=== PATIENT | female | born 1990 | race Caucasian/White ===

== ENCOUNTER 2020-12-05 14:30 | Emergency (ER) | payer OTHER, SELFPAY ==
--- NOTE | ~2020-12-05 | XR_ITS ---
EXAMINATION: XR foot RT min 3V DATE: 12/05/2020 15:00 INDICATION: Right foot pain TECHNIQUE: Dorsoplantar, lateral, and 2 oblique views of the right foot were obtained. COMPARISON: None. FINDINGS: There is lateral soft tissue swelling of the foot. Bone alignment is normal. There is no fr acture. The joint spaces are normal. IMPRESSION: 1. Soft tissue swelling without acute osseous abnormality. Reviewed, dictated and finalized at location B.
[2020-12-05 14:50] VITALS: BP 131/71; PULSE 96; RESP 20; TEMP 36.8; O2SAT 100
[2020-12-05 14:53] VITALS: BP 131/71; PULSE 96; RESP 20; TEMP 36.8; O2SAT 100
--- NOTE | 2020-12-05 15:08 | ED.LOWEXIN ---
HPI - Extremity Injury (Lower) General Chief Complaint: Extremity Injury, Lower Stated Complaint: r foot pain Time Seen by Provider: 12/05/20 15:08 Source: patient Mode of arrival: ambulatory Limitations: no limitations History of Present Illness HPI Narrative: Tequila Baig is a 30 yo female with a PMH of tobacco abuse who fell out of the basement steps last night and her right foot got caught under the rest of her leg. And across the top of her right foot goes to the lateral side; has been taking her 800 milligrams ibuprofen and states the pain still 7 or 8 out of 10 Related Data Allergies Allergy/AdvReac Type Severity Reaction Status Date / Time azithromycin Allergy Unknown Rash Verified 12/05/20 14:51 Review of Systems Review of Systems: Narrative: CONSTITUTIONAL: Denies fever, chills, sweats. EYES: Denies visual changes, redness, discharge. ENT: Denies rhinorrhea, congestion, sore throat, otalgia. CARDIOVASCULAR: Denies chest pain, palpitations, edema. RESPIRATORY: Denies dyspnea, wheezing, cough GASTROINTESTINAL: Denies abdominal pain, nausea, vomiting, diarrhea. GENITOURINARY: Denies dysuria, hematuria, abnormal discharge SKIN: Denies rash or itching. NEUROLOGIC: Denies numbness, or focal weakness. PSYCHIATRIC: Denies anxiety or depression. Right foot pain from fall PMFSH Past Medical History Medical History Obese Tobacco abuse Family History Family History (Updated 12/05/20 @ 15:17 by Zandra Penny CNP) Other Breast cancer COPD (chronic obstructive pulmonary disease) Diabetes mellitus Family history of arthritis Family history of malignant neoplasm Hypertension Social History Social History Smoking status: Light tobacco smoker Alcohol intake: current Comments At time of signature, I agree with nursing past medical, surgical, social and family history. There is no relevant family history pertinent to the presenting complaint. Exam Narrative: Exam Narrative: GENERAL: This is a well-nourished, well-developed patient, in mild distress. HEAD: normocephalic, atraumatic. EYES: Sclera clear/white. Vision is grossly intact. EARS: External ears normal, Hearing grossly intact. NOSE: External nose normal without nasal discharge, nares without redness, no rhinorrhea. THROAT: Mucous membranes moist, NECK: Neck supple, CARDIOVASCULAR: Regular rate and rhythm without murmurs, gallops, or rubs. RESPIRATORY: Clear to auscultation. Breath sounds equal bilaterally. No wheezes, rales, or rhonchi. GASTROINTESTINAL: Abdomen soft, SKIN: warm, intact with no suspicious lesions or rash, good texture and turgor. NEURO: awake, alert, and oriented to person, place and time. There were no obvious focal neurologic abnormalities. Steady gait EXTREMITIES: Normal range of motion on L. Patient is able to bear weight but is painful, pain is across the dorsum of her foot going to the lateral side of her foot, 2+ pedal pulse BACK: Nontender without deformity Course Course Emergency Course: Patient fell going down the basement steps and then her foot up underneath her leg when she fell. States that she has been taking her milligrams ibuprofen with no pain relief X-ray shows no fracture. Soft tissue swelling on the right foot Richi wrap applied to right foot; RICE next few days To continue ibuprofen 800 mg and [place] for pain relief Vital Signs Vital signs: Vital Signs Temperature 98.3 F 12/05/20 14:50 Pulse Rate 96 12/05/20 14:50 Respiratory Rate 20 12/05/20 14:50 Blood Pressure 131/71 12/05/20 14:50 Pulse Oximetry 100 12/05/20 14:50 Temperature 98.3 F 12/05/20 14:53 Pulse Rate 96 12/05/20 14:53 Respiratory Rate 20 12/05/20 14:53 Blood Pressure 131/71 12/05/20 14:53 Pulse Oximetry 100 12/05/20 14:53 MDM - Extremity Injury (Lower) Differential Diagnosis
== END 2020-12-05 15:35 | disposition home or self-care (01) ==
PROVIDERS: Emergency Provider Nurse Practitioner; PCP Nurse Practitioner Family
DX: M79.671 Pain in right foot (principal); E66.9 Obesity, unspecified; Z68.41 Body mass index [BMI] 40.0-44.9, adult
CPT/HCPCS: 73630; 99213; G0463

== ENCOUNTER 2021-11-10 15:51 | Observation (INO) | payer OTHER, SELFPAY ==
[2021-11-10] VITALS (42 sets, daily range): BP systolic 99–129; BP diastolic 48–76; PULSE 77–119; RESP 16–23; TEMP 36.5; O2SAT 96–100; BMI 43.2
--- NOTE | ~2021-11-10 | US_ITS ---
EXAMINATION: US OB follow up DATE: 11/10/2021 16:45 INDICATION: Vaginal bleeding during second trimester TECHNIQUE: Real-time ultrasound of the pelvis was performed. The interpreting radiologist was not pre sent for the study. COMPARISON: None. FINDINGS: There is a single fetus in vertex presentation. The head is within the cervix. The pl acenta is posterior. There is no detectable cardiac activity. The following biometric data were obtained: Biparietal diameter (BPD): 2.0 cm; head circumference (HC): 8.5 cm; abdominal circumference (AC): 10. 2 cm; femur length (FL): 1.9 cm. Estimated weight is 128 g +/- 19 g, which correlates with the <3rd percentile when 04/17/2022 is used as estimated date of delivery. As single measurements, these parameters are each equal to the following estimated gestational ages w ith ranges of +/- 2 standard deviations: BPD: 13 weeks 1 days +/- 1 weeks 1 days. HC: 13 weeks 5 days +/- 1 weeks 1 days. AC: 16 weeks 2 days +/- 1 weeks 5 days. FL: 15 weeks 3 days +/- 1 weeks 3 days. estimated gestational age based solely on measurements from this exam is 14 weeks 5 days +/- 1 weeks 0 days. IMPRESSION: 1. demise with head in the cervix. Reviewed, dictated and finalized at location A.
--- NOTE | 2021-11-10 16:00 | PC.NURSE ---
Patient presents to labor with c/o bleeding and cramping. States that the cramping started this morning with some pink discharge. Patient then started having more bleeding this afternoon and called MD. MD sent her for evaluation.
--- NOTE | 2021-11-10 16:04 | PC.NURSE ---
Dr Avilez informed of vaginal bleeding and unable to doppler fht's. OK to do sve and Bedside us.
--- NOTE | 2021-11-10 16:11 | PC.NURSE ---
Dr Avilez notified of bleeding and difficulty finding fht's with doppler. Orders received.
--- NOTE | 2021-11-10 16:15 | PC.NURSE ---
SVE possible small parts felt.
--- NOTE | 2021-11-10 16:21 | PC.NURSE ---
US at bedside.
--- NOTE | 2021-11-10 16:29 | PC.NURSE ---
Dr Avilez notifed that no heart tones noted on US and that fetus is coming thru cervix.
--- NOTE | 2021-11-10 16:46 | PM.IMHP ---
H&P: HPI History of Present Illness Date/Time: 11/10/21 16:46 Chief Complaint: vaginal bleeding Narrative: Tequila is a 31yo @ 17.3wks (RACHANA 04[birth year]) who presented to L&D w/ vaginal bleeding. She has been having cramping and bleeding all day; bright red bleeding. Official US confirmed demise at 14.5wks with the fetus in the cervix. She subsequently delivered the baby at ~1700. She began having significant bleeding; misoprostol and hemabate were given. She continued having bleeding ~600-800cc and plan to proceed with D&C as she has a retained placenta. she has a h/o x2; the last complicated by pre-eclampsia and she has been on aspirin. Review of Systems Review of Systems: All systems reviewed & are unremarkable except as noted in HPI and below (HPI) FORMERLY [facility] Past Medical History Medical History (Updated 11/10/21 @ 17:19 by Sonal Arellano MD) Obese PCOS (polycystic ovarian syndrome) Tobacco abuse Family History Family History Other Breast cancer COPD (chronic obstructive pulmonary disease) Diabetes mellitus Family history of arthritis Family history of malignant neoplasm Hypertension Social History Social History (Updated 09/08/21 @ 10:57 by Rosa Jiang MA) Smoking packs per day: 0.25 Smoking cigarettes per day: 5.0 Years smoked: 16 Smoking pack-years: 4.00 Smoking status: Light tobacco smoker Alcohol intake: never Substance use: current Substance use type: marijuana Gender identity (if verbalized by the patient): Female Meds Home Medications and Allergies Home Medications Medication Instructions Recorded Confirmed Type aspirin 81 mg tablet,delayed 162 mg PO DAILY #180 tabs 09/08/21 10/14/21 Rx release (Adult Aspirin Regimen) doxylamine succinate 25 mg tablet 25 mg PO QHS #60 tabs 09/08/21 10/14/21 Rx (Unisom (doxylamine)) magnesium oxide 400 mg PO DAILY #90 caps 09/08/21 10/14/21 Rx ondansetron 4 mg disintegrating 4 mg PO Q6H PRN nausea and 09/08/21 09/08/21 Rx tablet vomiting #30 tabs prenat.vits,sophia,kpa-yaxe-ljfip 1 tablet PO DAILY 09/08/21 10/14/21 History pyridoxine (vitamin B6) 25 mg 25 mg PO TID #120 tabs 09/08/21 10/14/21 Rx tablet riboflavin (vitamin B2) 400 mg 400 mg PO DAILY #90 tabs 10/14/21 10/14/21 Rx tablet Allergies Allergy/AdvReac Type Severity Reaction Status Date / Time azithromycin Allergy Unknown Rash Verified 09/08/21 10:54 Vital Signs Vital Signs - 24 hr 11/10/21 16:21 Pulse Rate 86 Blood Pressure 124/66 Exam Const: General: in distress (tearful and crying) moderate Resp: Effort & Inspection: normal respiratory effort GI: Inspection: non-distended GI Palp: No abdominal tenderness and Yes Soft to palpation : Other: macerated fetus at perineum with significant amount of clots; placenta in situ; cervix 2-3cm dilated; unable to tolerate exam EBl ~600-800cc at this point. Assessment and Plan Assessment and plan (1) Missed with demise before 20 completed weeks of gestation: Code(s): O02.1 - Missed Status: Acute (2) Retained placenta: Code(s): O73.0 - Retained placenta without hemorrhage Status: Acute (3) hemorrhage: Code(s): O72.1 - Other immediate hemorrhage Status: Acute Plan - warehouse consultant called @ [phone]; need to proceed with urgent suction D&C due to retained placenta and PPH - risks and benefits explained in detail - s/p hemabate; continue q15min - s/p misoprostol 1000mcg per rectum - T&S, IVF
--- NOTE | 2021-11-10 16:58 | PC.NURSE ---
Baby starting to deliver. Dr Arellano.
--- NOTE | 2021-11-10 16:59 | PC.NURSE ---
Spont vaginal delivery of a non viable male fetus, Dr Arellano at bedside.
[2021-11-10] MEDS: CARBOPROST TROMETHAMINE 250 MCG/ML AMPUL IM ×2 (17:03→17:26)
[2021-11-10] MEDS: LACTATED RINGERS 1,000 ML 999 ML IV CONT ×2 (17:03→17:45)
[2021-11-10] MEDS: miSOPROStol 200 MCG TABLET 1000 MCG RECTAL (17:08)
--- NOTE | 2021-11-10 17:20 | WPDHPUPDATE1 ---
History and Physical Update Update Date/Time: 11/10/21 17:20 History and Physical has been reviewed, including an updated exam of the patient. There are NO changes in the patient's condition. Risks, benefits, and alternatives have been discussed and questions answered. Patient agrees to proceed with procedure.
--- NOTE | 2021-11-10 17:27 | WPDANESEPP ---
Anes - Eval Pre Procedure Procedure: suction D&C Date/Time: 11/10/21 17:27 Surgeon: Adan Preop Diagnosis: Missed AB before 20 weeks Pre Op Diagnosis: Cramping/Bleeding Patient Data Age: 31 Gender: F Height: Weight: Last Vital Signs Pulse 96 11/10/21 17:22 BP 120/63 11/10/21 17:22 Pulse Ox 98 11/10/21 17:27 Allergies Allergy/AdvReac Type Severity Reaction Status Date / Time azithromycin Allergy Unknown Rash Verified 09/08/21 10:54 Home Medications Medication Instructions Recorded Confirmed Type aspirin 81 mg tablet,delayed 162 mg PO DAILY #180 tabs 09/08/21 10/14/21 Rx release (Adult Aspirin Regimen) doxylamine succinate 25 mg tablet 25 mg PO QHS #60 tabs 09/08/21 10/14/21 Rx (Unisom (doxylamine)) magnesium oxide 400 mg PO DAILY #90 caps 09/08/21 10/14/21 Rx ondansetron 4 mg disintegrating 4 mg PO Q6H PRN nausea and 09/08/21 09/08/21 Rx tablet vomiting #30 tabs prenat.vits,sophia,ifm-zixm-klsec 1 tablet PO DAILY 09/08/21 10/14/21 History pyridoxine (vitamin B6) 25 mg 25 mg PO TID #120 tabs 09/08/21 10/14/21 Rx tablet riboflavin (vitamin B2) 400 mg 400 mg PO DAILY #90 tabs 10/14/21 10/14/21 Rx tablet Patient hx anesthesia problems: none Family hx anesthesia problems: none Results Review: All pre-operative results and documents have been reviewed as part of the pre-operative evaluation. FORMERLY [facility] Past Medical History Medical History Obese PCOS (polycystic ovarian syndrome) Tobacco abuse Family History Family History Other Breast cancer COPD (chronic obstructive pulmonary disease) Diabetes mellitus Family history of arthritis Family history of malignant neoplasm Hypertension Social History Social History Smoking packs per day: 0.25 Smoking cigarettes per day: 5.0 Years smoked: 16 Smoking pack-years: 4.00 Smoking status: Light tobacco smoker Alcohol intake: never Substance use: current Substance use type: marijuana Gender identity (if verbalized by the patient): Female Exam Day of Procedure 11/10/21 17:27 Patient weight: obese Heart: regular rate and rhythm Lungs: normal air movement Airway: Mallampati scale class II Neurological: other (very upset, tearful)
[2021-11-10 17:39] LABS: Basophils Absolute Auto 0.1 K/mm3 (0.0-0.1); Basophils Percent Auto 0.6 % (0.2-1.2); Eosinophils Absolute Auto 0.4 K/mm3 (0-0.3); Eosinophils Percent Auto 3.6 % (0-4.4); Hematocrit 41.4 % (37.0-47.0); Hemoglobin 14.9 g/dL (12.0-15.0); Immature Granulocyte Absolute 0.08 K/mm3 (0.00-0.031); Immature Granulocyte Percent A 0.7 % (0-0.5); Lymphocytes Absolute Auto 2.96 K/mm3 (0.9-3.2); Lymphocytes Percent Auto 26.5 % (18.3-44.2); Mean Corpuscular Hemoglobin 31.2 pg (26-34); Mean Corpuscular Volume 86.8 fl (80-100); Mean Platelet Volume 11.5 fl (7.4-10.4); Monocytes Absolute Auto 0.7 K/mm3 (0.1-0.6); Monocytes Percent Auto 5.8 % (2.6-8.5); Neutrophils Percent Auto 62.8 % (45.5-73.1); Platelet Count Result 316 k/mm3 (150-375); Red Blood Count 4.77 M/mm3 (4.2-5.4); Red Cell Distribution Width 13.3 % (11.5-14.5); White Blood Count 11.2 K/mm3 (4.5-10.0)
--- NOTE | 2021-11-10 17:42 | LDADM ---
This patient, Tequila Baig, was admitted to OB Post 113 on 11/10/21 at 15:51. Plans for labor, pain management and were discussed with patient. Patient/family oriented to hospital policies and general routines including ID bracelet, bed and alarms, visiting hours, pain management, procedures, bathroom and other care routines, personal items, smoking policy, room service/diet and guest tray routines, infant security routines, and visiting hours. Patient/Family are encouraged to report perceived risks to care and to ask questions if they do not understand what they are told or what they should do. See OBIX for further documentation.
[2021-11-10 17:50] LABS: Partial Thromboplastin Time 26.8 SECONDS (22.3-36.8)
[2021-11-10 17:55] LABS: Fibrinogen 370 mg/dl (215-510)
[2021-11-10 17:58] LABS: Alanine Aminotransferase 15 U/L (6-35); Alkaline Phosphatase 52 U/L (38-126); Anion Gap 8 mmol/L (8-16); Aspartate Amino Transferase 20 U/L (14-36); Bilirubin,Total 0.9 mg/dL (0.2-1.3); Blood Urea Nitrogen 5 mg/dL (7-17); Calcium 8.7 mg/dL (8.4-10.2); Carbon Dioxide 24 mmol/L (22-30); Chloride 106 mmol/L (98-107); Estimated CRCL calculation 163 ml/min; Estimated Glomerular Filt Rate > 60; Glucose 93 mg/dL (65-110); Potassium 3.5 mmol/L (3.4-5.0); Sodium 138 mmol/L (137-145)
[2021-11-10] MEDS: ceFAZolin SODIUM 1 GM VIAL 2 GM IV PUSH (18:14)
--- NOTE | 2021-11-10 18:17 | P.PNAN_ITS ---
Anes - Eval Final PreProcedure Day of Procedure 11/10/21 18:17 Patient weight: morbidly obese Heart: regular rate and rhythm Lungs: clear to auscultation Airway: Mallampati scale class II Neurological: alert and oriented Last oral intake: >/= 8 hours ASA classification: III Emergent: yes Anesthetic plan: proceed Anesthesia type and monitoring: general GIVS and standard monitoring Results Review: All pre-operative results and documents have been reviewed as part of the pre- operative evaluation. Informed Consent: The patient's anesthetic plan and its attendant risks and benefits were discussed with the patient/family/POA. Questions were solicited and answers provided to the satisfaction of the patient/family/POA.
[2021-11-10] MEDS: LACTATED RINGERS 1,000 ML 30 ML IV CONT (18:41)
--- NOTE | 2021-11-10 18:42 | PC.NURSE ---
Addendum entered by Anusha Ramirez RN 11/10/21 18:44: 1658 - Original Note: Dr Arellano here to see patient, informed that patient is in the process of delivering.
--- NOTE | 2021-11-10 18:43 | P.PCNOB_ITS ---
OB - Delivery Note Procedure Delivery date: 11/10/21 Procedure: Procedures Operation Date: 11/10/21 18:30 Actual Procedure Side Surgeon p D&C Suction and Sharp Sonal Arellano MD Events: Other (IUFD) Route of delivery: Laceration Description: None Quantitative Blood Loss (ml): 1,200 Anesthesia type: None Disposition: Floor [place] Baby Date of : 11/10/21 Time of : 16:59 Weeks of gestation at delivery: 17 (.3) Weight (pounds): 0 Weight (ounces): 1 (.9) presentation: vertex Placenta delivery description: Curettage score one minute: 0 score five minutes: 0 Narrative: On arrival to room, macerated fetus was noted to be delivered in large pool of blood clots. The umbilical cord was doubly clamped and cut and fetus was handed off. With gentle traction on the cord; the placenta did not deliver. She as given hemabate 250mcg and misoprostol 1000mcg were placed @ 1703. She continued to have bleeding and a QBL of 919cc was noted at 1715. The household chores was then called at 1715 that an OR team needed to be called in for retained placenta with hemorrhage and that suction D&C needed to be performed urgently. She was given another dose of hemabate at 1726. She continued to have cramping pain and continued to have bleeding. Gentle traction on the cord was attempted 2-3x more and the placenta would not deliver and she continued to have bleeding; EBL prior to rolling to surgery was 1200cc. [facility] Delivery Billing Delivery Delivery: Delivery Charge
[2021-11-10 18:45] LABS: HIV 1/2 Ab P24 Ag Result Negative (Negative)
--- NOTE | 2021-11-10 18:51 | W.PM.PROC2 ---
Procedure Note - Detailed Date of Procedure 11/10/21 Pre-op Diagnosis Retained placenta hemorrhage Post-op Diagnosis Same Procedure Performed Suction dilation and curettage Surgeon Sonal Arellano MD Anesthesia General Indications Tequila is a 31yo now P2022 s/p delivery of IUFD fetus at 17w 3d. She had a retained placenta s/p hemabate x2 and misoprostol x1 with EBL of 1,200cc prior to suction D&C. Findings Cervix 3-4cm dilated with a small piece of the placenta delivering through the cervix. A large amount of placenta teased out using ring forceps. Suction and sharp curettage performed to verify the cavity was clean. Cervix 2cm dilated with good hemostasis. Bimanual massage performed with good uterine tone and minimal bleeding at end of case. Description of Procedure Patient arrived in operating room at 1806. She was transferred over to the operating table where she was placed under general endotracheal anesthesia without complications. She was prepped and draped in the usual sterile fashion in the dorsal lithotomy position with her legs in low Jakub stirrups. She received Ancef 2 g and a time-out was performed. A bivalve speculum was placed within the vagina where the above findings were noted. Using ring forceps a significant portion of the placenta was removed and sent to pathology. The anterior lip of the cervix was grasped with the ring forceps. The cervix remained dilated therefore a 12 Sets[place]ana suction curettage was placed into the uterine cavity and an additional piece of placenta was removed. She continued to have bleeding therefore a gentle sharp curettage was performed with a small amount of placenta removed. A bedside ultrasound was used and showed a small amount of placenta still remaining on the anterior uterine wall. A size 8 Setswana suction curettage was performed and a small amount of placenta and clots were removed. Ultrasound was once again performed and a thin endometrial lining was noted. The cervix was noted to be clamped down to 2 cm with minimal bleeding. All instruments were removed from the vagina and a bimanual massage was performed where good uterine tone with minimal bleeding was noted. Sponge, lap, instrument, and needle counts were correct at the end of the procedure patient was awoken from general anesthesia and taken to recovery in a stable condition with overnight stay planned for tonight. Estimated Blood Loss 200 Pathology Yes Complications No immediate complications Condition Stable Disposition Floor (OB) [facility] Billing Surgery - Charge Forward: Surgery Billing
--- NOTE | 2021-11-10 19:08 | PC.NURSE ---
Press Shop Supervisor notified
--- NOTE | 2021-11-10 19:12 | PC.NURSE ---
MTS notified ref #[id number]
[2021-11-10] MEDS: LOPERAMIDE HCL 2 MG CAPSULE 4 MG PO (19:55)
[2021-11-10] MEDS: THIAMINE HCL INJ 100 MG, FOLIC ACID INJ 1 MG, MULTIVITAMINS-12 INJ VIAL 1 5 ML, MULTIVI... IV CONT (20:01)
[2021-11-10] MEDS: fentaNYL CITRATE INJ (*CRX) 100 MCG/2 ML VIAL (20:03)
[2021-11-10] MEDS: IBUPROFEN 400 MG TABLET 800 MG PO (21:45)
[2021-11-10 21:52] LABS: Hematocrit 36.2 % (37.0-47.0); Hemoglobin 13.1 g/dL (12.0-15.0); Mean Corpuscular HGB Conc 36.2 g/dl (32-36); Mean Corpuscular Hemoglobin 31.6 pg (26-34); Mean Corpuscular Volume 87.4 fl (80-100); Mean Platelet Volume 11.5 fl (7.4-10.4); Platelet Count Result 289 k/mm3 (150-375); Red Blood Count 4.14 M/mm3 (4.2-5.4); Red Cell Distribution Width 13.6 % (11.5-14.5); White Blood Count 16.9 K/mm3 (4.5-10.0)
[2021-11-10 22:17] LABS: Amphetamine Screen Urine Negative (Negative); Barbiturate Screen Urine Negative (Negative); Benzodiazepines Screen Urine Negative (Negative); Cannabinoid Screen Urine Positive (Negative); Cocaine Screen Urine Negative (Negative); Methadone Screen Urine Negative (Negative); Opiate Screen Urine Negative (Negative); Phencyclidine Screen Urine Negative (Negative)
[2021-11-10 22:29] LABS: SARS-CoV-2 RNA PCR Negative
[2021-11-10] MEDS: ZOLPIDEM TARTRATE (*CRX) 5 MG TABLET PO (22:57)
[2021-11-11 00:05] VITALS: PULSE 79; RESP 18; TEMP 36.6
[2021-11-11 00:06] VITALS: BP 120/68; O2SAT 100
[2021-11-11 03:35] VITALS: BP 110/46; PULSE 77
[2021-11-11 04:00] VITALS: RESP 16; TEMP 36.3
--- NOTE | 2021-11-11 07:04 | PM.OBPNVD ---
OB - PN: Subj Subjective Date/time seen: 11/11/21 07:04 Narrative: POD/PPD#1 Tequila reports being very sad and anxious today. Her bleeding is light. Her pain is controlled. She is tolerating regular diet, voiding, passing gas, and ambulating without issues. She would like to start medications for anxiety. No symptoms of anemia. OB - PN: Obj Data Labs CBC & Chem 7: 11/10/21 21:29 11/10/21 17:31 Labs: Laboratory Results - last 24 hr 11/10/21 11/10/21 11/10/21 17:31 17:31 17:31 WBC 11.2 H RBC 4.77 Hgb 14.9 Hct 41.4 MCV 86.8 MCH 31.2 MCHC 36.0 RDW 13.3 Plt Count 316 MPV 11.5 H Immature Gran % (Auto) 0.7 H Neut % (Auto) 62.8 Lymph % (Auto) 26.5 [place] % (Auto) 5.8 Eos % (Auto) 3.6 Baso % (Auto) 0.6 Lymph # (Auto) 2.96 [place] # (Auto) 0.7 H Eos # (Auto) 0.4 H Baso # (Auto) 0.1 Abs Immat Gran (auto) 0.08 H Absolute Neuts (auto) 7.0 H Absolute Nucleated RBC 0.0 Nucleated RBC % 0.0 PT 13.0 INR 1.0 APTT 26.8 Fibrinogen 370 Sodium 138 Potassium 3.5 Chloride 106 Carbon Dioxide 24 Anion Gap 8 BUN 5 L Creatinine 0.50 L Estim Creat Clear Calc 163 Estimated GFR > 60 Glucose 93 Calcium 8.7 Total Bilirubin 0.9 AST 20 ALT 15 Alkaline Phosphatase 52 Total Protein 7.0 Albumin 4.0 TSH Urine Opiates Screen Urine Methadone Screen Ur Barbiturates Screen Ur Phencyclidine Scrn Ur Amphetamine Screen U Benzodiazepines Scrn Urine Cocaine Screen U Cannabinoids Screen HIV 1&2 Ab/P24 Ag 4thGn SARS-CoV-2 RNA (RT-PCR) Blood Type Antibody Screen 11/10/21 11/10/21 11/10/21 17:31 17:31 21:28 WBC RBC Hgb Hct MCV MCH MCHC RDW Plt Count MPV Immature Gran % (Auto) Neut % (Auto) Lymph % (Auto) [place] % (Auto) Eos % (Auto) Baso % (Auto) Lymph # (Auto) [place] # (Auto) Eos # (Auto) Baso # (Auto) Abs Immat Gran (auto) Absolute Neuts (auto) Absolute Nucleated RBC Nucleated RBC % PT INR APTT Fibrinogen Sodium Potassium Chloride Carbon Dioxide Anion Gap BUN Creatinine Estim Creat Clear Calc Estimated GFR Glucose Calcium Total Bilirubin AST ALT Alkaline Phosphatase Total Protein Albumin TSH Urine Opiates Screen Negative Urine Methadone Screen Negative Ur Barbiturates Screen Negative Ur Phencyclidine Scrn Negative Ur Amphetamine Screen Negative U Benzodiazepines Scrn Negative Urine Cocaine Screen Negative U Cannabinoids Screen Positive A HIV 1&2 Ab/P24 Ag 4thGn Negative SARS-CoV-2 RNA (RT-PCR) Blood Type A Positive Antibody Screen Negative 11/10/21 11/10/21 11/10/21 21:29 21:29 21:29 WBC 16.9 H RBC 4.14 L Hgb 13.1 Hct 36.2 L MCV 87.4 MCH 31.6 MCHC 36.2 H RDW 13.6 Plt Count 289 MPV 11.5 H Immature Gran % (Auto) Neut % (Auto) Lymph % (Auto) [place] % (Auto) Eos % (Auto) Baso % (Auto) Lymph # (Auto) [place] # (Auto) Eos # (Auto) Baso # (Auto) Abs Immat Gran (auto) Absolute Neuts (auto) Absolute Nucleated RBC Nucleated RBC % PT INR APTT Fibrinogen Sodium Potassium Chloride Carbon Dioxide Anion Gap BUN Creatinine Estim Creat Clear Calc Estimated GFR Glucose Calcium Total Bilirubin AST ALT Alkaline Phosphatase Total Protein Albumin TSH 1.600 Urine Opiates Screen Urine Methadone Screen Ur Barbiturates Screen Ur Phencyclidine Scrn Ur Amphetamine Screen U Benzodiazepines Scrn Urine Cocaine Screen U Cannabinoids Screen HIV 1&2 Ab/P24 Ag 4thGn SARS-CoV-2 RNA (RT-PCR) Negative Blood Type Antibody Screen Imaging Radiologist's impression:
--- NOTE | 2021-11-11 07:55 | PC.NURSE ---
Coleman Kenyon and Renny Kenyon RN (SHARE) were in to talk with pt and .
[2021-11-11 07:58] VITALS: BP 124/65; PULSE 84
[2021-11-11 08:00] VITALS: TEMP 36.6
[2021-11-11 08:24] LABS: Rapid Plasma Reagin Non-Reactive (NonReactive)
[2021-11-11 08:34] LABS: Hepatitis B Surface Antigen Negative (Negative); Rubella IgG Antibody 44.8 IU/ML
[2021-11-11] MEDS: SERTRALINE HCL 50 MG TABLET PO (08:38)
--- NOTE | 2021-11-12 14:20 | PM.OBTRLD ---
OB - Triage/Final Diagnosis Visit Information Comments/Additional reasons for admission: I have assessed the risk for this patient, Tequila Baig, and determined that she would benefit from observation care. Evaluation Laboratory results: Laboratory Tests 11/10/21 11/10/21 11/10/21 17:31 17:31 17:31 WBC 11.2 H RBC 4.77 Hgb 14.9 Hct 41.4 MCV 86.8 MCH 31.2 MCHC 36.0 RDW 13.3 Plt Count 316 MPV 11.5 H Immature Gran % (Auto) 0.7 H Neut % (Auto) 62.8 Lymph % (Auto) 26.5 Butler % (Auto) 5.8 Eos % (Auto) 3.6 Baso % (Auto) 0.6 Lymph # (Auto) 2.96 Butler # (Auto) 0.7 H Eos # (Auto) 0.4 H Baso # (Auto) 0.1 Abs Immat Gran (auto) 0.08 H Absolute Neuts (auto) 7.0 H Absolute Nucleated RBC 0.0 Nucleated RBC % 0.0 PT 13.0 INR 1.0 APTT 26.8 Fibrinogen 370 Sodium 138 Potassium 3.5 Chloride 106 Carbon Dioxide 24 Anion Gap 8 BUN 5 L Creatinine 0.50 L Estim Creat Clear Calc 163 Estimated GFR > 60 Glucose 93 Calcium 8.7 Total Bilirubin 0.9 AST 20 ALT 15 Alkaline Phosphatase 52 Total Protein 7.0 Albumin 4.0 TSH Urine Opiates Screen Urine Methadone Screen Ur Barbiturates Screen Ur Phencyclidine Scrn Ur Amphetamine Screen U Benzodiazepines Scrn Urine Cocaine Screen U Cannabinoids Screen RPR Hep Bs Antigen HIV 1&2 Ab/P24 Ag 4thGn Rubella IgG Antibody SARS-CoV-2 RNA (RT-PCR) Blood Type Antibody Screen 11/10/21 11/10/21 11/10/21 17:31 17:31 17:32 WBC RBC Hgb Hct MCV MCH MCHC RDW Plt Count MPV Immature Gran % (Auto) Neut % (Auto) Lymph % (Auto) Butler % (Auto) Eos % (Auto) Baso % (Auto) Lymph # (Auto) Butler # (Auto) Eos # (Auto) Baso # (Auto) Abs Immat Gran (auto) Absolute Neuts (auto) Absolute Nucleated RBC Nucleated RBC % PT INR APTT Fibrinogen Sodium Potassium Chloride Carbon Dioxide Anion Gap BUN Creatinine Estim Creat Clear Calc Estimated GFR Glucose Calcium Total Bilirubin AST ALT Alkaline Phosphatase Total Protein Albumin TSH Urine Opiates Screen Urine Methadone Screen Ur Barbiturates Screen Ur Phencyclidine Scrn Ur Amphetamine Screen U Benzodiazepines Scrn Urine Cocaine Screen U Cannabinoids Screen RPR Hep Bs Antigen Negative HIV 1&2 Ab/P24 Ag 4thGn Negative Rubella IgG Antibody 44.8 SARS-CoV-2 RNA (RT-PCR) Blood Type A Positive Antibody Screen Negative 11/10/21 11/10/21 11/10/21 21:28 21:29 21:29 WBC RBC Hgb Hct MCV MCH MCHC RDW Plt Count MPV Immature Gran % (Auto) Neut % (Auto) Lymph % (Auto) Butler % (Auto) Eos % (Auto) Baso % (Auto) Lymph # (Auto) Butler # (Auto) Eos # (Auto) Baso # (Auto) Abs Immat Gran (auto) Absolute Neuts (auto) Absolute Nucleated RBC Nucleated RBC % PT INR APTT Fibrinogen Sodium Potassium Chloride Carbon Dioxide Anion Gap BUN Creatinine Estim Creat Clear Calc Estimated GFR Glucose Calcium Total Bilirubin AST ALT Alkaline Phosphatase Total Protein Albumin TSH 1.600 Urine Opiates Screen Negative Urine Methadone Screen Negative Ur Barbiturates Screen Negative Ur Phencyclidine Scrn Negative Ur Amphetamine Screen Negative U Benzodiazepines Scrn Negative Urine Cocaine Screen Negative U Cannabinoids Screen Positive A RPR Non-reactive Hep Bs Antigen HIV 1&2 Ab/P24 Ag 4thGn Rubella IgG Antibody SARS-CoV-2 RNA (RT-PCR) Blood Type Antibody Screen 11/10/21 11/10/21 21:29 21:29 WBC 16.9 H RBC 4.14 L Hgb 13.1 Hct 36.2 L MCV 87.4 MCH 31.6 MCHC 36.2 H RDW 13.6
[2021-11-13 21:12] LABS: Lupus dRVVT 1:1 Mix Interpreta Not Indicated; Lupus dRVVT Screen 37 sec (<=45); PTT-LA Screen 38 sec (<=40)
[2021-11-14 19:43] LABS: Anti Cardio Antibody IgM <2.0 MPL-U/mL (<20.0); Anti Cardiolipin Antibody IgA <2.0 APL-U/mL (<20.0); Anti Cardiolipin Antibody IgG <2.0 GPL-U/mL (<20.0)
== END 2021-11-11 09:49 | disposition home or self-care (01) ==
PROVIDERS: Obstetrics & Gynecology; Admitting Provider Obstetrics & Gynecology; PCP Nurse Practitioner Family; Visit Provider Obstetrics & Gynecology
PROC: (CPT 59821; principal; 2021-11-10 18:30)
DX: O02.1 Missed abortion (principal); Z3A.17 17 weeks gestation of pregnancy; O99.212 Obesity complicating pregnancy, second trimester; Z68.41 Body mass index [BMI] 40.0-44.9, adult; O99.332 Smoking (tobacco) complicating pregnancy, second trimester; F17.210 Nicotine dependence, cigarettes, uncomplicated; Z20.822 Contact with and (suspected) exposure to COVID-19; E66.9 Obesity, unspecified
CPT/HCPCS: 59821; 36415; 76816; 80053; 80307; 84443; 85025; 85027; 85384; 85610; 85613; 85730; 86146; 86147; 86592; 86703; 86762; 86850; 86900; 86901; 87340; 88305; 96372; A9270; C9803; G0378; G0379; G0432; J0330; J0690; J2250; J2405; J2704; J3010; J3411; J3475; J7120; U0003; U0005

== ENCOUNTER 2022-04-21 16:11 | Outpatient (CLI) | payer OTHER, SELFPAY ==
[2022-04-21 17:16] LABS: Beta HCG Quantitative < 2.39 mIU/ML
== END 2022-04-21 16:12 | disposition home or self-care (01) ==
PROVIDERS: PCP Nurse Practitioner Family; Visit Provider Obstetrics & Gynecology
DX: N92.6 Irregular menstruation, unspecified (principal)
CPT/HCPCS: 36415; 84702

== ENCOUNTER 2022-06-17 10:04 | Outpatient (CLI) | payer OTHER, SELFPAY ==
--- NOTE | ~2022-06-17 | XR_ITS ---
EXAMINATION: XR shoulder RT min 2V DATE: 06/17/2022 13:17 INDICATION: Right shoulder pain. TECHNIQUE: 4 views of right shoulder were obtained. COMPARISON: None. FINDINGS: Bone alignment is normal. No fracture. Joint spaces are well maintained. IMPRESSION: 1. Normal right shoulder. Reviewed, dictated and finalized at location A. 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 Normal right shoulder.
== END 2022-06-17 10:05 | disposition home or self-care (01) ==
PROVIDERS: PCP Nurse Practitioner Family; Visit Provider Nurse Practitioner Family
DX: M25.511 Pain in right shoulder (principal)
CPT/HCPCS: 73030

== ENCOUNTER 2022-09-08 09:18 | Emergency (ER) | payer OTHER, SELFPAY ==
--- NOTE | ~2022-09-08 | XR_ITS ---
EXAMINATION: XR_CERV2-3V_CR DATE: 09/08/2022 09:52 INDICATION: Neck pain. TECHNIQUE: 3 views of cervical spine were obtained. COMPARISON: None. FINDINGS: There is 4 degrees levocurvature of cervical spine. Vertebral body heights are normal. Ther e is mildly decreased disc height at C5-C6. The facet joints are unremarkable. No central canal steno sis or prevertebral soft tissue swelling. IMPRESSION: 1. Mild spondylosis at C5-C6. Reviewed, dictated and finalized at location A.
--- NOTE | ~2022-09-08 | XR_ITS ---
EXAMINATION: XR shoulder RT min 2V DATE: 09/08/2022 09:53 INDICATION: Right shoulder tenderness. TECHNIQUE: 4 views of right shoulder were obtained. COMPARISON: Right shoulder radiographs 06/17/2022 FINDINGS: Bone alignment is normal. No fracture. Joint spaces are normal. IMPRESSION: 1. Normal right shoulder. Reviewed, dictated and finalized at location A. IMPRESSION: 1. Normal right shoulder.
[2022-09-08 09:24] VITALS: BP 134/73; PULSE 100; RESP 18; TEMP 36.4; O2SAT 98
--- NOTE | 2022-09-08 09:36 | ED.EXTPRO ---
HPI - Extremity Problem General Chief complaint: Extremity Problem,Nontraumatic Stated complaint: Right shoulder pain Time Seen by Provider: 09/08/22 09:25 History of Present Illness HPI Narrative: Patient is a 32-year-old right-handed female here for evaluation of right shoulder pain x1 month. Patient states that she has had shoulder pain intermittently over the past month. 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 Today she has had some sharp shooting pain that radiates down her arm, seems to come on when she turns her head. She has no weakness in the limb, nausea, vomiting, vision changes, headaches or slurred speech. No weakness in the leg. She saw her primary care doctor upon symptom onset and had x-rays that were negative, primary care attributed to frozen shoulder and she has been taking cyclobenzaprine without relief. Related Data Home Medications Medication Instructions Recorded Confirmed letrozole PO 08/21/22 08/21/22 Allergies Allergy/AdvReac Type Severity Reaction Status Date / Time azithromycin Allergy Unknown Rash Verified 08/21/22 11:25 Review of Systems Review of Systems: Gen.: Denies fevers or chills Eyes: Denies eye pain or visual change ENT: Denies congestion Respiratory: Denies shortness of breath or cough CV: Denies chest pain or palpitations GI: Denies abdominal pain nausea, emesis or diarrhea denies burning, urgency, frequency or hematuria Musculoskeletal: Reports right shoulder pain Neuro: Denies numbness, tingling, weakness or focal weakness Skin: Denies rash Except as documented, all other systems reviewed and negative [facility] Past Medical History Medical History Anemia Anxiety BMI 37.0-37.9, adult BMI 38.0-38.9,adult BMI 40.0-44.9, adult Depression Encounter to establish care Obese PCOS (polycystic ovarian syndrome) Right shoulder pain Screening for diabetes mellitus Tobacco abuse Surgical History Surgical History History of dilation and curettage 11/10/2021 demise at 17 weeks Family History Family History Father Lung cancer Asthma Hypertension Mother Depression Hypertension Grandparent Cancer Grandparent Cancer Other Breast cancer COPD (chronic obstructive pulmonary disease) Diabetes mellitus Family history of arthritis Family history of malignant neoplasm Social History Social History Years smoked: 15 Smoking status: Current every day smoker Tobacco type: cigarettes Second hand tobacco smoke exposure: Yes Alcohol intake: never Substance use: current Substance use type: marijuana Lack of Transportation: No Lack of Food: Never True Current Housing: I Have Housing Concerned About Future Housing: No Difficulty Paying Gas/Electric Bills: No Difficulty Paying for Meds: No Currently Unemployed: No Education: Trade/Vocational Certificate Difficulty w/ Childcare or Family Care: No Living arrangements: with family Gender identity (if verbalized by the patient): Female Spiritual care concerns: No Exam Narrative: APPEARANCE: Well appearing, no pain in distress, well-nourished. Head: Normocephalic and atraumatic. EYES: PERRLA/EOMI, conjunctivae clear NOSE: No nasal drainage EARS: External ear normal in appearance THROAT: Oropharynx is clear. Mucous membranes are moist. NECK: Supple. No adenopathy, no masses. RESPIRATORY: Airway patent, respirations nonlabored. Clear to auscultation bilaterally, no rales, rhonchi, wheezing. CARDIOVASCULAR: 2+ radial pulses bilaterally. Regular rate and rhythm without
[2022-09-08] MEDS: ACETAMINOPHEN 325 MG TABLET 650 MG PO (10:17)
[2022-09-08] MEDS: LIDOCAINE 5% PATCH 1 PATCH TRANSDERM (10:17)
[2022-09-08 10:29] VITALS: BP 128/73; PULSE 98; RESP 18
== END 2022-09-08 10:35 | disposition home or self-care (01) ==
LOC: ANHED 10:13
PROVIDERS: Emergency Provider Physician Assistant; PCP Nurse Practitioner Family
DX: M48.02 Spinal stenosis, cervical region (principal); F17.210 Nicotine dependence, cigarettes, uncomplicated; D64.9 Anemia, unspecified; F41.9 Anxiety disorder, unspecified; F32.A Depression, unspecified
CPT/HCPCS: 72040; 73030; 99284; A4565; A9270

== ENCOUNTER 2023-04-22 09:33 | Emergency (ER) | payer OTHER, SELFPAY ==
--- NOTE | ~2023-04-22 | XR_ITS ---
EXAMINATION: XR knee LT min 4V DATE: 04/22/2023 09:58 INDICATION: Left posterior knee pain post straining TECHNIQUE: Anteroposterior, 2 oblique and crosstable lateral views of the left knee were obtained COMPARISON: None. FINDINGS: Alignment is normal. No fracture. Small marginal osteophytes consistent with at least mild tricompar tmental osteoarthritis at the left knee. Joint spaces appear relatively preserved although narrowing can be underestimated on nonweightbearing imaging. There is a small to moderate-sized left knee joint effusion at the suprapatellar pouch without layering lipohemarthrosis. Soft tissues are unremarkable . IMPRESSION: 1. At least mild tricompartmental osteoarthritis at the left knee with small to moderate-sized left k nee joint effusion. Reviewed, dictated and finalized at location A. 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 At least mild tricompartmental osteoarthritis at the left knee with small to moderate-sized left knee joint effusion.
[2023-04-22 09:43] VITALS: BP 126/81; PULSE 87; RESP 16; TEMP 37; O2SAT 99
--- NOTE | 2023-04-22 10:00 | ED.LOWEXIN ---
HPI - Extremity Injury (Lower) General Chief Complaint: Extremity Injury, Lower Stated Complaint: left knee injury Source: patient, RN notes reviewed and old records reviewed Mode of arrival: ambulatory Limitations: no limitations History of Present Illness HPI Narrative: 33-year-old female presents to [facility] with complaint of left knee pain and swelling this started last p.m. after patient twisted knee going down the stairs. Patient denies falling, patient denies any other complaints at this time. Patient has not taken MD complaint: knee injury Onset (ago): day(s) (1) Injury: Left: knee Type of Injury: unknown Related Data Allergies Allergy/AdvReac Type Severity Reaction Status Date / Time azithromycin Allergy Unknown Rash Verified 04/22/23 09:47 Review of Systems Constitutional: Constitutional: Reports no additional constitutional complaints Eyes: Eyes: Reports no additional eye complaints ENT: Reports system reviewed and no additional complaints, except as documented Cardiovascular: Cardiovascular: Reports no additional cardiovascular complaints Respiratory: Respiratory: Reports no additional respiratory complaints Musculoskeletal: Musculoskeletal: Reports as per HPI, Reports abnormal gait, Reports arthralgias and Reports joint swelling Comments: left knee pain and swelling Neurologic: Reports system reviewed and no additional complaints, except as documented [facility] Past Medical History Medical History (Updated 04/22/23 @ 10:05 by Park Vicente APRN) Anemia Anxiety BMI 37.0-37.9, adult BMI 38.0-38.9,adult BMI 40.0-44.9, adult Cervical spondylosis Cough Depression Encounter to establish care Obese PCOS (polycystic ovarian syndrome) Right shoulder pain Screening for diabetes mellitus Tobacco abuse Surgical History Surgical History History of dilation and curettage 11/10/2021 demise at 17 weeks Family History Family History Father Lung cancer Asthma Hypertension Mother Depression Hypertension Grandparent Cancer Grandparent Cancer Other Breast cancer COPD (chronic obstructive pulmonary disease) Diabetes mellitus Family history of arthritis Family history of malignant neoplasm Social History Social History (Updated 03/11/23 @ 10:08 by Matt Velazquez CMA) Years smoked: 15 Smoking status: Current every day smoker Tobacco type: cigarettes Second hand tobacco smoke exposure: Yes Alcohol intake: never Substance use: current Substance use type: marijuana Lack of Transportation: No Lack of Food: Never True Current Housing: I Have Housing Concerned About Future Housing: No Difficulty Paying Gas/Electric Bills: No Difficulty Paying for Meds: No Currently Unemployed: No Education: Trade/Vocational Certificate Difficulty w/ Childcare or Family Care: No Living arrangements: with family Gender identity (if verbalized by the patient): Female Spiritual care concerns: No Comments At the time of my signature, I reviewed and agree with the nursing past medical, surgical, social, and family history. There is no relevant family history pertinent to the patient complaint. Exam Const: General: cooperative, healthy appearing, no acute distress and well nourished Nutritional Appearance: well nourished Orientation/consciousness: patient oriented x3 Limitations: no limitations HENMT: Head: normal to inspection and normocephalic Ears: external ears normal, TM's normal bilaterally, mastoids normal and Abnormal EAC present Face/Nose/Sinus: normal facial exam Face and sinus: normal facial exam Mouth: Yes Normal oral and palatal mucosa present, Yes oropharynx normal and Yes moist mucous membranes Throat: posterior oropharynx normal, tonsils normal, uvula midline and no uvular edema Eyes: General: appearance normal, both eyes
== END 2023-04-22 10:13 | disposition home or self-care (01) ==
PROVIDERS: Emergency Provider Registered Nurse; PCP Nurse Practitioner Family
DX: S83.92XA Sprain of unspecified site of left knee, initial encounter (principal); X50.9XXA Other and unspecified overexertion or strenuous movements or postures, initial encounter; E28.2 Polycystic ovarian syndrome
CPT/HCPCS: 73564; 99213; G0463

== ENCOUNTER 2023-08-09 11:03 | Emergency (ER) | payer OTHER, SELFPAY ==
--- NOTE | ~2023-08-09 | US_ITS ---
EXAMINATION: US pelvic complete w TV DATE: 08/09/2023 13:06 INDICATION: Right-sided pelvic pain Comparison:No prior studies for comparison. TECHNIQUE: Multiple transabdominal and endovaginal sonographic images of the pelvis performed. FINDINGS: The uterus measures 9.3 x 4.8 x 5.5 cm. The endometrial complex measures 9 mm. The right ovary measures 4 x 2 x 3.1 cm and the left ovary measures 4 x 1.9 x 2.8 cm. There are smal l follicles in each ovary. Normal doppler signal in both ovaries. There is no free fluid in the pelvis. There are no abnormal masses seen on either side. IMPRESSION: 1. Unremarkable pelvic ultrasound. Reviewed, dictated and finalized at location B.
--- NOTE | ~2023-08-09 | CT_ITS ---
EXAMINATION: CT abdomen pelvis w con DATE: 08/09/2023 12:31 INDICATION: Right abdominal pain. TECHNIQUE: Computed tomography (CT) of the abdomen and pelvis was performed with 100 mL Omnipaque 350 intravenous contrast. Automated exposure control and iterative reconstruction technique were employe d. The dose-length product was 1561.06 mGy-cm. COMPARISON: CT abdomen 08/14/2008 FINDINGS: The visualized portions of the lung bases demonstrate mild atelectasis. No pleural effusion . The heart size is normal. No pericardial effusion. The liver, gallbladder, spleen, pancreas, adrena l glands, and kidneys are normal. There are no dilated loops of bowel. The appendix is normal. There are no pathologically enlarged lymph nodes. There is no free intraperitoneal fluid. There is mild tho racic and lumbar spondylosis. There is mild chronic anterior wedging of multiple thoracic vertebral b odies. IMPRESSION: 1. No etiology for the patient's symptoms. Reviewed, dictated and finalized at location E.
[2023-08-09 11:04] VITALS: BP 137/84; PULSE 100; RESP 18; TEMP 36.6; O2SAT 93
[2023-08-09 11:23] VITALS: BP 129/87; PULSE 94; RESP 18; O2SAT 99
[2023-08-09 11:27] LABS: Basophils Absolute Auto 0.2 K/mm3 (0.0-0.1); Basophils Percent Auto 1.3 % (0.2-1.2); Eosinophils Absolute Auto 0.4 K/mm3 (0-0.3); Eosinophils Percent Auto 2.6 % (0-4.4); Hemoglobin 17.5 g/dL (12.0-15.0); Immature Granulocyte Absolute 0.22 K/mm3 (0.00-0.031); Immature Granulocyte Percent A 1.5 % (0-0.5); Lymphocytes Absolute Auto 3.28 K/mm3 (0.9-3.2); Lymphocytes Percent Auto 22.1 % (18.3-44.2); Mean Corpuscular HGB Conc 36.5 g/dl (32-36); Mean Corpuscular Volume 85.1 fl (80-100); Mean Platelet Volume 10.7 fl (7.4-10.4); Monocytes Absolute Auto 0.9 K/mm3 (0.1-0.6); Monocytes Percent Auto 5.9 % (2.6-8.5); Neutrophils Absolute Auto 9.9 K/mm3 (1.3-6.7); Neutrophils Percent Auto 66.6 % (45.5-73.1); Platelet Count Result 418 k/mm3 (150-375); Red Blood Count 5.64 M/mm3 (4.2-5.4); Red Cell Distribution Width 13.8 % (11.5-14.5); White Blood Count 14.8 K/mm3 (4.5-10.0)
[2023-08-09 11:38] LABS: Alanine Aminotransferase 25 U/L (6-35); Albumin Level 4.6 g/dL (3.5-5.1); Alkaline Phosphatase 52 U/L (38-126); Anion Gap 6 mmol/L (8-16); Aspartate Amino Transferase 32 U/L (14-36); Blood Urea Nitrogen 5 mg/dL (7-17); Calcium 9.6 mg/dL (8.4-10.2); Carbon Dioxide 26 mmol/L (22-30); Chloride 105 mmol/L (98-107); Estimated CRCL calculation 140 ml/min; Estimated Glomerular Filt Rate > 60; Glucose 79 mg/dL (65-110); Lipase 53 U/L (23-300); Potassium 4.1 mmol/L (3.4-5.0); Sodium 137 mmol/L (137-145)
[2023-08-09 11:44] LABS: Add Urine Microscopic? YES; Bacteria Urine Rare /hpf; Squamous Epithelial Cell Urine Moderate /hpf (Few); WBC Urine 0-5 /hpf (0-3)
[2023-08-09 11:47] LABS: Appearance Urine Sl Cloudy (Clear); Blood Urine Negative (Negative); Color Urine Yellow (Yellow); Glucose Urine UA Trace mg/dL (Negative); Ketones Urine Trace mg/dL (Negative); Nitrate Urine Negative (Negative); Protein Urine 1+ mg/dL (Negative); Specific Grav Ur 1.025 (1.001-1.035); pH Urine 5.5 (5.0-9.0)
[2023-08-09 11:48] LABS: Bilirubin Urine 1+ (Negative); Leukocyte Esterase Ur Negative LEU/UL (Negative)
--- NOTE | 2023-08-09 12:15 | ED.GENADULT ---
HPI - General Adult General Chief complaint: Abdominal Pain Stated complaint: right sided abdominal pain Time Seen by Provider: 08/09/23 11:40 Source: patient Mode of arrival: ambulatory Limitations: no limitations History of Present Illness HPI narrative: This is a 33-year-old female with PMH of PCOS who presents to the ED with chief complaint of sudden-onset right-sided abdominal pain beginning around 6:00 a.m. this morning. Reports the pain woke her out of her sleep has been radiating throughout the right lower and right upper quadrants. states the pain seems to be coming in waves and is described as a sharp or cramping pain. Reports LNMP was 7 days ago. endorses some episodes of loose stools today and nausea but no vomiting. Denies GI bleeding symptoms. denies fevers, chills, recent illness, cough, chest pain, shortness of breath Surgical history of D&C many years ago Related Data Allergies Allergy/AdvReac Type Severity Reaction Status Date / Time azithromycin Allergy Unknown Rash Verified 08/09/23 11:03 Review of Systems Review of Systems: All systems as dictated in HPI REPLACED BY [facility] Past Medical History Medical History (Updated 08/09/23 @ 13:27 by Pancho Umanzor PA-C) Anemia Anxiety BMI 37.0-37.9, adult BMI 38.0-38.9,adult BMI 40.0-44.9, adult Cervical spondylosis Cough Depression Encounter to establish care Obese PCOS (polycystic ovarian syndrome) Right shoulder pain Screening for diabetes mellitus Tobacco abuse Surgical History Surgical History History of dilation and curettage 11/10/2021 demise at 17 weeks Family History Family History Father Lung cancer Asthma Hypertension Mother Depression Hypertension Grandparent Cancer Grandparent Cancer Other Breast cancer COPD (chronic obstructive pulmonary disease) Diabetes mellitus Family history of arthritis Family history of malignant neoplasm Social History Social History (Updated 03/11/23 @ 10:08 by Matt Velazquez CMA) Years smoked: 15 Smoking status: Current every day smoker Tobacco type: cigarettes Second hand tobacco smoke exposure: Yes Alcohol intake: never Substance use: current Substance use type: marijuana Lack of Transportation: No Lack of Food: Never True Current Housing: I Have Housing Concerned About Future Housing: No Difficulty Paying Gas/Electric Bills: No Difficulty Paying for Meds: No Currently Unemployed: No Education: Trade/Vocational Certificate Difficulty w/ Childcare or Family Care: No Living arrangements: with family Gender identity (if verbalized by the patient): Female Spiritual care concerns: No Exam Narrative: GENERAL: Well-appearing, well-nourished, and in no acute distress. HEAD: Normocephalic, atraumatic. EYES: PERRLA and EOMI. ENT: Nares clear, no rhinorrhea or epistaxis. Mucous membranes moist. Oropharynx without tonsillar hypertrophy exudate or other lesions. NECK: Supple. No adenopathy or masses. CHEST: No respiratory distress. Clear to auscultation. No wheezes rales or rhonchi HEART: Regular rate and rhythm. No murmur heard. Normal peripheral pulses. ABDOMEN: Mild tenderness to the right lower quadrant. Soft, otherwise nontender, nondistended, normal active bowel sounds. Negative flank tenderness bilaterally MSK: Normal range of motion. No edema. SKIN: Warm, dry, no rash. NEURO: Alert and oriented x3. No focal deficits. PSYCH: Normal mood and affect. Course Vital Signs Vital signs: Vital Signs Temperature 98 F 08/09/23 11:04 Pulse Rate 100 08/09/23 11:04 Respiratory Rate 18 08/09/23 11:04 Blood Pressure 137/84 08/09/23 11:04 Pulse Oximetry 93 08/09/23 11:04 Oxygen Delivery Room Air 08/09/23 11:04 Temperature 98 F 08/09/23 11:04 Pulse Rate 78 08/09/23 13:10 Respiratory
[2023-08-09] MEDS: SODIUM CHLORIDE 0.9% IV 1,000 ML 999 ML IV CONT (13:02)
[2023-08-09] MEDS: MORPHINE SULFATE (*CRX) 4 MG/ML INJ IV PUSH (13:02)
[2023-08-09] MEDS: ONDANSETRON INJ 4 MG/2 ML VIAL IV PUSH (13:02)
[2023-08-09 13:10] VITALS: BP 125/78; PULSE 78; RESP 19; O2SAT 98
== END 2023-08-09 13:33 | disposition home or self-care (01) ==
PROVIDERS: Emergency Medicine; Emergency Provider Physician Assistant; PCP Nurse Practitioner Family
DX: K52.9 Noninfective gastroenteritis and colitis, unspecified (principal); E28.2 Polycystic ovarian syndrome; E66.9 Obesity, unspecified; Z68.41 Body mass index [BMI] 40.0-44.9, adult; F17.210 Nicotine dependence, cigarettes, uncomplicated; F41.9 Anxiety disorder, unspecified; F32.A Depression, unspecified; Z86.2 Personal history of diseases of the blood and blood-forming organs and certain disorders involving the immune mechanism
CPT/HCPCS: 36415; 74177; 76830; 76856; 80053; 81001; 81025; 83690; 85025; 96361; 96374; 96375; 99284; J2270; J2405; J7030; Q9967

== ENCOUNTER 2023-12-01 14:23 | Emergency (ER) | payer OTHER, SELFPAY ==
--- NOTE | ~2023-12-01 | XR_ITS ---
XR knee RT 3V Ordering provider: Jannette Chance NP History: . rt knee pain s/p hyperextending same . Comparison: July 10, 2012 FINDINGS: BONES: No acute fracture or dislocation. JOINT SPACES: Marginal osteophytes seen in the knee and patella which may indicate mild osteoarthriti c changes. SOFT TISSUES: Normal. IMPRESSION: No acute osseous abnormality right knee. Reviewed, dictated and finalized at location A.
[2023-12-01 14:41] VITALS: BP 135/67; PULSE 73; RESP 16; TEMP 37.1; O2SAT 98
--- NOTE | 2023-12-01 15:08 | ED.LOWEXIN ---
HPI - Extremity Injury (Lower) General Chief Complaint: Extremity Injury, Lower Stated Complaint: right knee pain after fall Time Seen by Provider: 12/01/23 15:08 Source: patient Mode of arrival: ambulatory Limitations: no limitations History of Present Illness HPI Narrative: 33-year-old female presents with complaint of pain to right knee. Pain worse when ambulatory and with flexion. Patient states she was leaving for work this morning and her cat ran in between her legs causing her to twist her right knee and fall. Range of motion and distal neurovascularly intact. All systems reviewed and negative except as noted above. Related Data Allergies Allergy/AdvReac Type Severity Reaction Status Date / Time azithromycin Allergy Unknown Rash Verified 12/01/23 14:26 Review of Systems Review of Systems: CONSTITUTIONAL: Denies fever, chills, or sweats. EYES: Denies visual changes, redness, or discharge. ENT: Denies rhinorrhea, congestion, sore throat, or otalgia. CARDIOVASCULAR: Denies chest pain, palpitations, or edema. RESPIRATORY: Denies cough or dyspnea. GASTROINTESTINAL: Denies abdominal pain, nausea, vomiting, or diarrhea. GENITOURINARY: Denies dysuria or hematuria. SKIN: Denies rash or itching. MUSCULOSKELETAL: Reports right knee and swelling. NEUROLOGIC: Denies headache, numbness, or weakness. PSYCHIATRIC: Denies anxiety or depression. All other systems reviewed are negative, except as documented in HPI. [facility] Past Medical History Medical History (Updated 12/01/23 @ 15:40 by Jannette Chance NP) Anemia Anxiety BMI 37.0-37.9, adult BMI 38.0-38.9,adult BMI 40.0-44.9, adult Cervical spondylosis Cough Depression Encounter to establish care Obese PCOS (polycystic ovarian syndrome) Right shoulder pain Screening for diabetes mellitus Tobacco abuse Surgical History Surgical History History of dilation and curettage 11/10/2021 demise at 17 weeks Family History Family History Father Lung cancer Asthma Hypertension Mother Depression Hypertension Grandparent Cancer Grandparent Cancer Other Breast cancer COPD (chronic obstructive pulmonary disease) Diabetes mellitus Family history of arthritis Family history of malignant neoplasm Social History Social History (Updated 03/11/23 @ 10:08 by Matt Velazquez [facility]) Years smoked: 15 Smoking status: Current every day smoker Tobacco type: cigarettes Second hand tobacco smoke exposure: Yes Alcohol intake: never Substance use: current Substance use type: marijuana Lack of Transportation: No Lack of Food: Never True Current Housing: I Have Housing Concerned About Future Housing: No Difficulty Paying Gas/Electric Bills: No Difficulty Paying for Meds: No Currently Unemployed: No Education: Trade/Vocational Certificate Difficulty w/ Childcare or Family Care: No Living arrangements: with family Gender identity (if verbalized by the patient): Female Spiritual care concerns: No Comments At time of signature, agree with nursing past medical, surgical, social and family history. There is no relevant family history pertinent to the presenting complaint. Exam Narrative: GENERAL: This is a well-nourished, well-developed patient, in no apparent distress. HEAD: normocephalic, atraumatic. EYES: PERRL. Sclera clear/white. Vision is grossly intact. EARS: External ears normal NOSE: External nose normal NECK: Neck supple, non-tender without lymphadenopathy, masses or thyromegaly. CARDIOVASCULAR: Regular rate and rhythm without murmurs, gallops, or rubs. RESPIRATORY: Clear to auscultation. Breath sounds equal bilaterally. No wheezes, rales, or rhonchi. SKIN: warm, Dry, intact with no suspicious lesions or rash, good texture and turgor. NEURO: awake, alert, and oriented to person, place
== END 2023-12-01 15:46 | disposition home or self-care (01) ==
PROVIDERS: Emergency Provider Nurse Practitioner Family; PCP Nurse Practitioner Family
DX: S83.91XA Sprain of unspecified site of right knee, initial encounter (principal); W19.XXXA Unspecified fall, initial encounter; F17.210 Nicotine dependence, cigarettes, uncomplicated; F12.90 Cannabis use, unspecified, uncomplicated; E66.9 Obesity, unspecified; Z68.41 Body mass index [BMI] 40.0-44.9, adult; E28.2 Polycystic ovarian syndrome; F41.9 Anxiety disorder, unspecified; F32.A Depression, unspecified; M47.812 Spondylosis without myelopathy or radiculopathy, cervical region
CPT/HCPCS: 73562; 99213; G0463

== ENCOUNTER 2024-07-04 14:34 | Emergency (ER) | payer OTHER, SELFPAY ==
[2024-07-04 14:40] VITALS: BP 138/90; PULSE 116; RESP 16; TEMP 36.7; O2SAT 99
--- NOTE | 2024-07-04 14:56 | ED.URI ---
HPI - URI/Sore Throat General Chief Complaint: Nausea/Vomiting/Diarrhea Stated Complaint: Bodyaches Time Seen by Provider: 07/04/24 14:56 Source: patient, RN notes reviewed and old records reviewed Mode of arrival: ambulatory Limitations: no limitations History of Present Illness HPI Narrative: Patient presents with complaints of nausea vomiting and diarrhea. She reports that symptoms began yesterday. She reports low-grade temperature. 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 She reports she has been sick frequently with illnesses that the residents have become sick with. Patient reports diarrhea has become so severe that she has been incontinent of stool a couple of times. She reports generalized abdominal cramping without localization of pain. Related Data Allergies Allergy/AdvReac Type Severity Reaction Status Date / Time azithromycin Allergy Unknown Rash Verified 07/04/24 14:41 Review of Systems Review of Systems: All systems reviewed & are unremarkable except as noted in HPI and below Constitutional: Constitutional: Reports no additional constitutional complaints ENT: Reports system reviewed and no additional complaints, except as documented Cardiovascular: Cardiovascular: Reports no additional cardiovascular complaints Respiratory: Respiratory: Reports no additional respiratory complaints Gastrointestinal: Gastrointestinal: Reports no additional gastrointestinal complaints, Reports GI cramping, Reports diarrhea, Reports nausea and Reports vomiting PMFSH Past Medical History Medical History Cough Cervical spondylosis BMI 40.0-44.9, adult Screening for diabetes mellitus Right shoulder pain BMI 37.0-37.9, adult Anemia BMI 38.0-38.9,adult Depression Anxiety Encounter to establish care PCOS (polycystic ovarian syndrome) Obese Tobacco abuse Surgical History Surgical History History of dilation and curettage 11/10/2021 demise at 17 weeks Family History Family History Father Lung cancer Asthma Hypertension Mother Depression Hypertension Grandparent Cancer Grandparent Cancer Other Breast cancer COPD (chronic obstructive pulmonary disease) Diabetes mellitus Family history of arthritis Family history of malignant neoplasm Social History Social History Years smoked: 15 Smoking status: Current every day smoker Tobacco type: cigarettes Second hand tobacco smoke exposure: Yes Alcohol intake: never Substance use: current Substance use type: marijuana Lack of Transportation: No Lack of Food: Never True Current Housing: I Have Housing Concerned About Future Housing: No Difficulty Paying Gas/Electric Bills: No Difficulty Paying for Meds: No Currently Unemployed: No Education: Trade/Vocational Certificate Difficulty w/ Childcare or Family Care: No Living arrangements: with family Gender identity (if verbalized by the patient): Female Spiritual care concerns: No Comments At the time of my signature, I reviewed and agree with the nursing past medical, surgical, social, and family history. There is no relevant family history pertinent to the patient complaint. Exam Const: General: cooperative, no acute distress, alert and awake Orientation/consciousness: oriented to person, oriented to place and oriented to time HENMT: Head: normal to inspection Resp: Effort & Inspection: normal respiratory effort and able to speak in complete sentences Auscultation: clear to auscultation bilaterally, no crackles, no rales, no rhonchi and no wheezes Cardio: Palpation: normal PMI Rate: regular rate Rhythm: regular rhythm Heart sounds: S1 normal heart sound present and S2 normal heart sound present GI: GI Palp: No abdominal tenderness, Yes Soft to palpation, No Tenderness to palpation present (GI), No Guarding due to palpation present (GI) and No Rigid due to palpation Auscultation: abnormal bowel sounds Neuro: General: oriented to person, oriented to place and oriented to time Cranial nerves: Yes CN's II-XII intact bilaterally Psych: Appearance: grossly normal Thought process: Normal thought process present Insight: Good insight present (Psych) Judgement: Good judgement present (Psych) Course Course Level of Care: Express Care Visit Vital Signs Vital signs: Vital Signs Temperature 98.0 F 07/04/24 14:40 Pulse Rate 116 H 07/04/24 14:40 Respiratory Rate 16 07/04/24 14:40 Blood Pressure 138/90 07/04/24 14:40 Pulse Oximetry 99 07/04/24 14:40 Oxygen Delivery Room Air 07/04/24 14:40 Temperature 98.0 F 07/04/24 14:40 Pulse Rate 116 H 07/04/24 14:40 Respiratory Rate 16 07/04/24 14:40 Blood Pressure 138/90 07/04/24 14:40 Pulse Oximetry 99 07/04/24 14:40 Oxygen Delivery Room Air 07/04/24 14:40 Reviewed MDM - URI/Sore Throat MDM Narrative Medical decision making narrative: Negative COVID, negative flu. Symptoms likely viral in origin. Patient nontoxic appearing, stable for discharge home with supportive care measures. Prescriptions provided. Work note provided. Discharge instructions reviewed with patient, as well as provided in writing per nursing staff. The instructions also include specific and strict return/GO TO THE ER as well as f/u information. All questions have been answered, and the patient deny any further questions with discharge and discharge plan. Some parts of this dictation were generated by voice recognition software and may contain typographical and/or grammatical inaccuracies. Differential Diagnosis Differential diagnosis: Likely viral infection and influenza Medical Records Attestation: I reviewed the patient's medical records. Lab Data Attestation: I reviewed the patient's lab results. Discharge Plan Discharge Clinical Impression: Gastroenteritis Patient Disposition: Home, Self-Care Condition: Stable Instructions: Antibiotic Form, Gastroenteritis (ED) Additional Instructions: Use medications as prescribed. Plenty of rest and fluids. Follow with primary care provider. Emergency department for new or worse symptoms Patient Language: Tamazight Prescriptions: New diphenoxylate-atropine [Lomotil] 2.5-0.025 mg tablet 1 tablet PO TID PRN (Reason: diarrhea) Qty: 10 0RF ondansetron 4 mg tablet,disintegrating 4 mg PO Q6H PRN (Reason: nausea and vomiting) Qty: 14 0RF No Action buspirone 15 mg tablet 15 mg PO BID Qty: 60 11RF Rx Instructions: start at 5mg 2x/day and titrate as directed escitalopram oxalate [Lexapro] 10 mg tablet 10 mg PO DAILY Qty: 30 11RF Follow-up/Referrals: Francheska Flores NP [Primary Care Provider] - 1 Week Stand Alone Forms: Work/School Release IP Time of Disposition: 15:11
[2024-07-04 15:00] LABS: EDCOVIDSCREEN Negative (Negative); EDINFLUASCREEN Negative (Negative); EDINFLUBSCREEN Negative (Negative)
== END 2024-07-04 15:15 | disposition home or self-care (01) ==
PROVIDERS: Emergency Provider Nurse Practitioner Family; PCP Nurse Practitioner Family
DX: K52.9 Noninfective gastroenteritis and colitis, unspecified (principal); Z20.822 Contact with and (suspected) exposure to COVID-19; F17.210 Nicotine dependence, cigarettes, uncomplicated; F12.90 Cannabis use, unspecified, uncomplicated; E28.2 Polycystic ovarian syndrome; E66.9 Obesity, unspecified; Z68.41 Body mass index [BMI] 40.0-44.9, adult; F41.9 Anxiety disorder, unspecified; F32.A Depression, unspecified; M47.812 Spondylosis without myelopathy or radiculopathy, cervical region
CPT/HCPCS: 87426; 87804; 99213; G0463

== ENCOUNTER 2024-12-04 14:43 | Outpatient (CLI) | payer OTHER, SELFPAY ==
--- OUTSIDE RECORDS SUMMARY | 2024-12-04 14:52 | XMS_ITS | Clinical Summary ---
Author Organization [facility] [employer] Address [address] [place] [address] Care Team Providers Care Rotary Furnace Operator Name Role Phone Rick Tuttle APRN-SHREDDED FILLER MACHINE WRAPPER LAYER Primary Care Provider Source Comments [facility] [employer],non-owned Affiliates and Associated Physician Practices is amultiple site organization consisting of ambulatory clinics and hospital sitesin [place], [place], [place] and [place]. This disclosure is being madepursuant to the Care Everywhere program and may not contain all information available regarding this patient. Last updated 18.[facility] Allergies Active Allergy Reactions Criticality Noted Date Comments Azithromycin 08/19/2016 Medications * Be aware that medications may not be up to date on this document. Alwaysverify current medications with the patient. albuterol HFA (PROAIR HFA) 108 (90 BASE) MCG/ACT inhalerIndicati ons:Asthma Inhale 2 Puffs by mouth every 4 hours as needed for Shortness of Breath, Wheezing or Cough Reasons: Asthma 1 Inhaler 2 7 Active fluticasone hfa 44 (FLOVENT HFA) 44 MCG/ACT inhalerIndicati ons:Asthma Inhale 2 Puffs by mouth 2 times daily Reasons: Asthma 1 Inhaler 7 Active Active Problems No known active problems Social History Tobacco Use Types Packs/Day Years Used Date Smoking Tobacco: Every Day Comments Unknown Sex and Gender Information Value Date Recorded Sex Assigned at Not on file Legal Sex Female 9:33 AM CDT Gender Identity Not on file Sexual Orientation Not on file Last Filed Vital Signs Vital Sign Reading Time Taken Comments Blood Pressure 118/80 08/19/2016 11:07 AM CDT Pulse 103 08/19/2016 11:07 AM CDT Temperature 36.7 C (98.1 F) 08/19/2016 11:07 AM CDT Respiratory Rate 24 08/19/2016 11:07 AM CDT Oxygen Saturation 97% 08/19/2016 11:07 AM CDT Inhaled Oxygen Concentration - - Weight 84.8 kg (187 lb) 08/19/2016 11:07 AM CDT Height 162.6 cm (5' 4) 08/19/2016 11:07 AM CDT Body Mass Index 32.1 08/19/2016 11:07 AM CDT Plan of Treatment Health Maintenance Due Date Last Done Comments HIV SCREENING 2005 HEPATITIS C SCREENING 01/22/2008 DTAP/TDAP/TD VACCINES (1 - Tdap) 2009 HEPATITIS B VACCINE (1 of 3 - 19+ 3-dose series) 2009 HPV VACCINE (1 - 3-dose SCDM series) 2017 COVID-19 VACCINE (1 - 2023-2 5 season) 2024 DEPRESSION SCREENING 05/17/2024 INFLUENZA VACCINE (#1) 2025 ZOSTER VACCINE (1 of 2) 01/27/2040 HIB VACCINE Aged Out No longer eligi ble based on patient's age to complete this topic MENINGOCOCCAL (Group B) VACC INE SHARED DECISION-MAKING Aged Out No longer eligibl e based on patient's age to complete this topic MENINGOCOCCAL GROUPS A/C/Y/W VACCINE Aged Out No longer eligible b ased on patient's age to complete this topic PNEUMOCOCCAL VACCINE Aged Out No long er eligible based on patient's age to complete this topic Insurance [id number] [place] [address] [facility] Care Teams Rotary Furnace Operator Relationship Specialty Start Date End Date Rick Tuttle, PHYSICAL MEDICINE SPECIALIST-SHREDDED FILLER MACHINE WRAPPER LAYER [address] [place] [address] PCP - General 11/20/21
--- OUTSIDE RECORDS SUMMARY | 2024-12-04 14:52 | XMS_ITS | Data Portability ---
Author Organization [facility] Address [address] [place] [address] Assessment No assessment recorded. Plan of Treatment Reminders Order Date Submit Date Provider Last Modified By Organization Details Last Modified Time Details Appointments None recorded. Lab None recorded. Referral physical therapist referral 2017 018 [email or web address] Not available 8 11:23:57 orthopedic referral 2017 018 hadley Hodges MD, [address] [place], [address], 9 12:34:08 physical therapy knee referral 2017 018 hadley Not available 9 12:07:04 Procedures None recorded. Surgeries None recorded. Imaging XR, knee 2017 018 [email or web address] [facility] ([facility] [address] [place], [address], 8 11:23:57 Medication Orders naproxen 500 mg tablet 2017 018 [facility] [address] [facility], [address] [place], [address], 8 15:26:13 Patient TargetsNo targets recorded. Patient Instructions Encounter Date Encounter Id Patient Instructions Last Modified By Organization Details Last Modified Time 07/13/2017 [id number] Quitting Tobacco : Care Instructions [email or web address] Not available 07/13/2017 11:37:37 Reason for Referral Orthopedic Referral for Pain in right knee Referring Physician: Joyce [facility], Encounter Date: 07/13/2017 Referring Physician: Joyce Sol [facility], Encounter Date: 07/13/2017 Referring Physician: Joseph Hodges, Orthopedic Surgery, Encounter Date: 08/30/2017 Results Created Date Observation Date Name Description Value Unit Range Abnormal Flag Note LastModifiedBy Organization Detail LastModifiedTime 09/02/19 18 08/30/2017 XR, knee RIGHT KNEE TWO VIEWS: Chief compla int/In dicati on: Right knee pain. COMPAR CRISTO: No compar isons. FINDIN GS: AP, latera l, and patell ar sunris e views of the right knee were obtain ed. There is mild patell ofemor al joint space narrow ing with mild periar ticula r spurri ng of the patell a. There is a tiny joint effusi on. There is no fractu re. IMPRES RUT: DEGENE RATIVE CHANGE S ARE SEEN INVOLV ING THE PATELL A WITH A TINY JOINT EFFUSI ON. READ BY: SIGNED BY: LENORA KRISHNA Date: 2017 1:42 PM [email or web address] [facility] [address] [place], [address], 09/01/2017 15:54:21 Result Notes Documentation Provider Name and Address Organization Details Recorded Time Xr, Knee : RIGHT KNEE TWO VIEWS: Chief complaint/Indication: Right knee pain. COMPARISON: No comparisons. FINDINGS: AP, lateral, and patellar sunrise views of the right knee were obtained. There is mild patellofemoral joint space narrowing with mild periarticular spurring of the patella. There is a tiny joint effusion. There is no fracture. IMPRESSION: DEGENERATIVE CHANGES ARE SEEN INVOLVING THE PATELLA WITH A TINY JOINT EFFUSION. READ BY: SIGNED BY: SEA QUINONEZ Date: 09/01/2017 1:42 PM Rosemarie rodriguez [facility] 09/01/2017 15:54:21 Problems No Known Problems Procedures Surgical History Date Name Laterality Status Provider Name and Address Organization Details Recorded Time Tonsillectomy completed Laura Loyola CMA [facility] 07/13/2017 11:03:10 Imaging Results None recorded. Procedure Notes None recorded. Medical Equipment None Reported. Allergies Allergen ID Allergen Name Allergen Category Reaction Reaction Severity Criticality Documentation Date Start Date Code Code System Note Provider Name and Address Organization Details Recorded Time 158960 Zithromax medicatio n Not available Not available Not available 07/13/2017 72342 4 RxNorm Laura Loyola CMA [place] - [facility] 8 11:02:40 Medications Name Sig Start Date Stop Date Status Note LastModified by Organization Details LastModified Time prednisone 20 mg tablet active Not Available Not Available No t Available penicillin V potassium 500 mg tablet active Not Available Not Available No t Available tramadol 50 mg tablet Take 1 tablet twice a day by oral route as needed for 30 days. active Not Available Not Available No t Available prednisone 50 mg tablet active Not Available Not Available No t Available montelukast 10 mg tablet active Not Available Not Available Not Available naproxen 500 mg tablet Take 1 tablet twice a day by oral route as needed. 018 active Not Available Not Available Not Avai lable amoxicillin 875 mg-potassium clavulanate 125 mg tablet active Not Available Not Availabl e Not Available ProAir HFA 90 mcg/actuation aerosol inhaler active Not Available Not Available Not Available Aerospan 80 mcg/actuation HFA aerosol inhaler active Not Available Not Available Not Available Vitals Date Recorded Body height Body mass index (BMI) Body weight Oxygen saturation Oxygen saturation in Arterial blood by Pulse oximetry Heart rate Body temperature Systolic And Diastolic Provider Name and Address Organization Details Last Updated DateTime 8 162.56 cm 43 kg/m2 776999. 19 g 97 % 97 % 78 /min 97.8 [degF] 110/70 mm[Hg] Laura Loyola CMA [place] [facility] 8 11:12:56 Date Recorded Body height Body mass index (BMI) Body weight Heart rate Body temperature Systolic And Diastolic Provider Name and Address Organization Details Last Updated DateTime 8 162.56 cm 42.8 kg/m2 664752. 6 g 80 /min 98.1 [degF] 114/78 mm[Hg] Laura Loyola CMA [place] [facility] 8 12:08:16 Date Recorded Body height Body mass index (BMI) Body weight Heart rate Systolic And Diastolic Provider Name and Address Organization Details Last Updated DateTime 08/30/2017 162.56 cm 43 kg/m2 258570.5 3 g 84 /min 156/94 mm[Hg] Rosemarie Fuentes [facility] 08/30/2017 14:16:06 Social History Question Answer Notes LastModified by Organizat ion Details LastModified Time Tobacco Smoking Status Current Every Day Smoker Laura Nir, COPPER MINER BLASTING null, [facility] 07/13/2017 11:04:40 What Was The Date Of Your Most Recent Tobacco Screening? 08/30/2017 Information n ot available 12/08/2018 Sex: Unknown Functional Status None recorded. Mental Status None recorded. Family History Relationship Description Onset Age of this Age Resolved Age Notes LastModified by Organization Details LastModified Time Sister Asthma thulsema Not available 0 07/13/2017 11:03:39 Sister Migraine thulsema Not available 07/13/2017 11:04:34 Father Asthma thulsema Not available 0 07/13/2017 11:03:39 Father Depressive disorder thulsema Not available 2017 11:03:50 Father Diabetes mellitus thulsema Not available 2017 11:03:59 Father Hypertensive disorder thulsema Not available 2017 11:04:18 Father Migraine thulsema Not available 07/13/2017 11:04:34 Brother Asthma thulsema Not available 07/13/2017 11:03:39 Mother Depressive disorder thulsema Not available 2017 11:03:50 Mother Disorder of thyroid gland thulsema Not available 2017 11:04:07 Mother Hypertensive disorder thulsema Not available 2017 11:04:18 Mother Migraine thulsema Not available 07/13/2017 11:04:34 Medical History Condition Response Coronary Artery Disease N Other N Atrial Fibrillation N High Blood Pressure N Kidney or Bladder Problems N Thyroid Problems N GI Problems N Depression N COPD N Blood Clots N Skin Problems N Anemia N Heart Attack ([place]) N Anxiety Disorder N Diabetes N Muscle, Joint, or Bone Problems Y Seizures/Epilepsy N Acid Reflux (GERD) N Cancer N Stroke N Asthma Y Allergies N High Cholesterol N Hepatitis N Liver Disease N Headaches N Heart Failure N Osteoporosis N Gynecological HistoryNo gynecological history recorded. Obstetrics History GPAL:G 0 P 0 0 0 0 Past Encounters Encounter ID Performer Location Encounter Start Date Encounter Closed Date Diagnosis/Indication Diagnosis SNOMED-CT Code Diagnosis ICD10 Code Diagnosis Note [id number] JOYCEERIK Sol NP [facility] [address] [place] [address] 07/13/2017 10:40:51 07/15/2017 17:52:38 Pain in right knee [id number] 82120 M25.561 Refer to ortho. Start PT. Discussed conservati ve tx- ice, rest, elevation, ROM exercises. F/u prn [id number] JOYCE Sol NP [facility] [address] [place] [address] 08/02/2017 12:00:32 08/03/2017 09:47:01 Pain in right knee [id number] 06960 M25.561 Continue PT. Keep scheduled apt with ortho. Continue conservati ve tx- ice, rest, elevation, ROM exercises. Note given for work restrictio ns. F/u prn [id number] Joseph Hodges MD [facility] [address] [place] [address] 08/30/2017 14:08:11 09/06/2017 11:23:57 Pain in right knee 4216522446 49662 M25.561 Chondromal acia of right patella 3449263517 0560567 M22.41 Health Concerns Section Related Observation LastModified by Organization Detai ls LastModified Time None Recorded Concern Status LastModified by Organization Details LastModified Time None Recorded Advance Directives Directive None Recorded Payers Insurance Date Sequence Insurance Name Policy Number Policy Ortiz Covered Member ID Ortiz Member ID Guarantor Name 08/02/2017 1 [facility] - DOS PRIOR TO 2020 (MEDICAID REPLACEMENT - HMO) Tequila Baig [id number] Tequila Baig Notes Date Note Type Note Provider Name and Address Organization Details Recorded Time 07/13/2017 text/html Patient presents today to establish care. Reports she injured her right knee when she was young and never had surgery as recommended. She has done multiple attempts at PT. She can not bare weight on her right knee at this time. She is wearing a knee brace. Recently she fell and went to [facility]. Reports it has been more painful, swollen, tender since that time. X-rays showed severe degenerative changes. 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 Currently smokes 1/2 pack of cigarettes per day. JOYCE Sol NP Attn: [address] [place], [address], [facility] 07/14/2017 14:18:34 08/02/2017 text/html Patient presents today for follow-up. States that she is currently going to physical therapy and has an upcoming apt with an orthopedic doctor (08/30/17). Pain is controlled with naproxen & tramadol prn. She would like a release to go back to work. 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 She would like to keep shifts to 4 hours, 3-4x per week. She reports her boss will accomodate this for her. JOYCE Sol NP Attn: [address] [place], [address], [facility] 08/02/2017 14:21:23 08/30/2017 text/html KneeReported bypatient.Location: right Quality:aching; throbbing; deep Severity:mild Duration:continuous since onset Timing:chronic; gradual; recurrent Context:overuse Alleviating Factors:heat; ice; rest; narcotics; NSAIDs; cortisone injection Aggravating Factors:standing; upstairs; downstairs; nighttime; cold weather; damp weather Associated Symptoms:weakness;s welling;catching/lo cking;popping/click ing;grinding;instab ility Previous Surgery:none Prior Imaging:no recent studies Previous Injections:helped temporarily Previous PT:helped significantly Joseph Hodges MD [address] [place], [address], [facility] 08/30/2017 15:27:05 OBGyn Episode No OBEpisode recorded.
[2024-12-04 16:06] LABS: Beta HCG Quantitative < 2.39 mIU/ML
== END 2024-12-04 14:44 | disposition home or self-care (01) ==
LOC: ANHLAB 14:43
PROVIDERS: PCP Nurse Practitioner Family; Visit Provider Obstetrics & Gynecology
DX: N92.6 Irregular menstruation, unspecified (principal)
CPT/HCPCS: 36415; 84702

== ENCOUNTER 2024-12-18 15:35 | Outpatient (CLI) | payer OTHER, SELFPAY ==
--- OUTSIDE RECORDS SUMMARY | 2024-12-18 15:38 | XMS_ITS | Clinical Summary ---
Author Organization [facility] [employer] Address [address] [place] [address] Care Team Providers Care Kennel Worker Name Role Phone Rick Tuttle APRN-CAGE OPERATOR Primary Care Provider Source Comments [facility] [employer],non-owned Affiliates and Associated Physician Practices is amultiple site organization consisting of ambulatory clinics and hospital sitesin [place], [place], [place] and [place]. This disclosure is being madepursuant to the Care Everywhere program and may not contain all information available regarding this patient. Last updated 18.[facility] [employer] Allergies Active Allergy Reactions Criticality Noted Date [...] patient's age to complete this topic Insurance [id number] [place] [address] [facility] Care Teams Kennel Worker Relationship Specialty Start Date End Date Rick Tuttle, AIRCRAFT INSTRUMENT ENGINEER-CAGE OPERATOR [address] [place] [address] PCP - General 11/20/21
[2024-12-18 15:53] LABS: Hematocrit 45.5 % (37.0-47.0); Hemoglobin 16.5 g/dL (12.0-15.0); Immature Granulocyte Percent A 1.0 % (0-0.5); Lymphocytes Absolute Auto 3.80 K/mm3 (0.9-3.2); Mean Corpuscular HGB Conc 36.3 g/dl (32-36); Mean Corpuscular Hemoglobin 31.1 pg (26-34); Mean Corpuscular Volume 85.8 fl (80-100); Nucleated Red Blood Cells Absolute Auto 0.000 K/mm3 (0.0-0.012); Nucleated Red Blood Cells Perc 0.0 % (0.0-0.2); Platelet Count Result 370 k/mm3 (150-375); Red Blood Count 5.30 M/mm3 (4.2-5.4); White Blood Count 11.5 K/mm3 (4.5-10.0)
[2024-12-18 16:33] LABS: Alanine Aminotransferase 24 U/L (6-35); Albumin Level 4.4 g/dL (3.5-5.1); Alkaline Phosphatase 46 U/L (38-126); Anion Gap 8 mmol/L (4-12); Aspartate Amino Transferase 27 U/L (14-36); Bilirubin,Total 1.1 mg/dL (0.2-1.3); Blood Urea Nitrogen 5 mg/dL (7-17); Calcium 9.5 mg/dL (8.4-10.2); Carbon Dioxide 28 mmol/L (22-30); Chloride 103 mmol/L (98-107); Estimated Glomerular Filt Rate > 60; Glucose 96 mg/dL (65-110); Potassium 4.4 mmol/L (3.4-5.0); Sodium 139 mmol/L (137-145); Total Protein 7.3 g/dL (6.3-8.2)
[2024-12-18 16:48] LABS: Beta HCG Quantitative < 2.39 mIU/ML
[2024-12-18 16:57] LABS: Thyroid Stimulating Hormone Reflex 1.920 uIU/mL (0.465-4.68)
[2024-12-18 17:07] LABS: Hemoglobin A1C < 4.0 % (<5.7)
[2024-12-18 17:23] LABS: Free T3 4.88 pg/mL (2.32-6.09); Free T4 Free Thyroxine 1.18 ng/dL (0.78-2.19)
== END 2024-12-18 15:36 | disposition home or self-care (01) ==
LOC: ANHLAB 15:36
PROVIDERS: PCP Nurse Practitioner Family; Visit Provider Obstetrics & Gynecology
DX: N92.6 Irregular menstruation, unspecified (principal)
CPT/HCPCS: 36415; 80053; 83036; 84439; 84443; 84481; 84702; 85025

== ENCOUNTER 2025-01-29 13:53 | Emergency (ER) | payer OTHER, SELFPAY ==
--- NOTE | 2025-01-29 13:55 | ED.NECK ---
HPI - Neck Pain/Injury General Chief Complaint: Extremity Injury, Upper Stated Complaint: pain in neck/right shoulder Time Seen by Provider: 01/29/25 13:54 Source: patient Mode of arrival: ambulatory Limitations: no limitations History of Present Illness HPI Narrative: Tequila is a 35-year-old female patient presenting to the clinic today with complaints pain in the right side of her neck radiating into the right shoulder. She reports she was at work and was lifting a heavy box and felt a pop in her shoulder. Is having pain from her shoulder radiating up into her neck and then down her right arm. Is complaining of some numbness and tingling in her fingers. History of pinched nerve in the past and states this feels similar. Reports is only having pain to the right side neck when she is turning her head to the right. Is having pain with raising her arm above her head. This occurred around 10:00 a.m. this morning. Rates pain 910. Patient took 800mg ibuprofen at that time. Related Data Home Medications ?Medication ?Instructions ?Recorded ?Confirmed ?Last Taken ?Type buspirone 5 mg tablet 5 mg PO BID 12/11/24 12/11/24 Unknown History Allergies Allergy/AdvReac Type Severity Reaction Status Date / Time azithromycin Allergy Unknown Rash Verified 01/29/25 13:55 [facility] Past Medical History Medical History Cough Cervical spondylosis BMI 40.0-44.9, adult Screening for diabetes mellitus Right shoulder pain BMI 37.0-37.9, adult Anemia BMI 38.0-38.9,adult Depression Anxiety Encounter to establish care PCOS (polycystic ovarian syndrome) Obese Tobacco abuse Surgical History Surgical History History of dilation and curettage 11/10/2021 demise at 17 weeks Family History Family History Father Lung cancer Asthma Hypertension Mother Depression Hypertension Grandparent Cancer Grandparent Cancer Other Breast cancer COPD (chronic obstructive pulmonary disease) Diabetes mellitus Family history of arthritis Family history of malignant neoplasm Social History Social History Years smoked: 15 Smoking status: Current every day smoker Tobacco type: cigarettes and e-cigarettes/vaping Second hand tobacco smoke exposure: Yes Alcohol intake: never Substance use: current Substance use type: marijuana Do You Feel Safe in your Home?: Yes Lack of Transportation: No Lack of Food: Never True Current Housing: I Have Housing Concerned About Future Housing: No Difficulty Paying Gas/Electric Bills: No Difficulty Paying for Meds: No Currently Unemployed: No Education: Associate Degree Difficulty w/ Childcare or Family Care: No Living arrangements: with family Additional living arrangements comments: Occupation/Education: occupation 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 There is no relevant family history pertinent to the patient complaint. Exam Narrative: General: Well-developed, morbidly obese, in no apparent distress Head: Normocephalic, atraumatic. Cardio: Regular rate and rhythm, s1 and s2 normal, no murmur appreciated. Resp: Clear to auscultation bilaterally, no rhonchi, rales, wheezing or rubs. Musculoskeletal: No deformity, muscle strength strong and equal, peripheral pulse strong, no edema, no cyanosis, normal gait and station, pain with turning her head to the right against resistance, no pain with turning her head to the left against resistance, pain with raising the right arm up above the head or doing posterior reach, pain to palpation over the right cervical posterior lateral musculature and over the right trapezius musculature. Bilateral hand grasps strong and equal nontender to palpation over the posterior cervical spine. Empty can, full can, and drop-arm test negative Course Course Emergency Course: Portions of this record may have been created with voice recognition software. Level of Care: Express Care Visit Vital Signs Vital signs: Vital Signs Temperature 36.6 C 01/29/25 14:01 Pulse Rate 90 01/29/25 14:01 Respiratory Rate 20 01/29/25 14:01 Blood Pressure 135/75 01/29/25 14:01 Pulse Oximetry 99 01/29/25 14:01 Oxygen Delivery Room Air 01/29/25 14:01 Temperature 36.6 C 01/29/25 14:01 Pulse Rate 90 01/29/25 14:01 Respiratory Rate 20 01/29/25 14:01 Blood Pressure 135/75 01/29/25 14:01 Pulse Oximetry 99 01/29/25 14:01 Oxygen Delivery Room Air 01/29/25 14:01 Vital signs reviewed MDM - Neck Pain/Injury MDM Narrative Medical decision making narrative: At the time of visit patient is resting comfortably on the exam table. Patient appears to be nontoxic. Complaints pain in the right side of her neck radiating into the right shoulder. She reports she was at work and was lifting a heavy box and felt a pop in her shoulder. Is having pain from her shoulder radiating up into her neck and then down her right arm. Is complaining of some numbness and tingling in her fingers. History of pinched nerve in the past and states this feels similar. Reports is only having pain to the right side neck when she is turning her head to the right. Is having pain with raising her arm above her head. This occurred around 10:00 a.m. this morning. Rates pain 9/ 10. Patient took 800mg ibuprofen at that time. On exam patient has pain with turning her head to the right against resistance, no pain with turning her head to the left against resistance, pain with raising the right arm up above the head or doing posterior reach, pain to palpation over the right cervical posterior lateral musculature and over the right trapezius musculature. Bilateral hand grasps strong and equal nontender to palpation over the posterior cervical spine. Empty can, full can, and drop-arm test negative Plan: I suspect patient has a cervical strain of the posterior lateral trapezius musculature with acute shoulder pain/sprain. Arm sling and ice pack was given to the patient. Will send in prescription for Medrol Dosepak and baclofen. Supportive measures were discussed with the patient and they voiced understanding discharge instructions and agrees to treatment plan. Return precautions reviewed Differential Diagnosis Differential diagnosis: Likely disc disorder of cervical region, whiplash injury to neck, cervical radiculopathy, torticollis, strain of neck muscle and other (AC joint separation, shoulder sprain) Discharge Plan Discharge Clinical Impression: Strain of cervical portion of right trapezius muscle Right shoulder pain Qualifiers: Chronicity: acute Qualified Code(s): M25.511 - Pain in right shoulder Patient Disposition: Home Condition: Stable Instructions: Antibiotic Form, Muscle Strain (ED), Shoulder Pain (ED) Additional Instructions: Wear arm sling as discussed Take any prescription medication only as prescribed-Medrol Dosepak and baclofen Be mindful of sedation precautions given to you if taking a muscle relaxer. May use heat or ice to the affected area May take Tylenol/Motrin as needed for pain per bottle directions Consider massage or chiropractor adjustment if this was discussed with provider May use blue emu, lidocaine patches, or asper cream to affected area- do not apply heat or ice directly over cream- can cause burn. Complete appropriate neck/trapezius stretching exercises. Follow up with your PCP in 3-5 days if symptom persist. Patient Language: Sudanese Prescriptions: New methylprednisolone [Medrol (Chema)] 4 mg tablets,dose pack See Rx Instructions PO .COMPLEX Qty: 21 0RF Rx Instructions: orally per package directions baclofen 10 mg tablet 10 mg PO TID PRN (Reason: muscle spasm) 7 Days Qty: 21 0RF No Action buspirone 5 mg tablet 5 mg PO BID Follow-up/Referrals: Francheska Flores NP [Primary Care Provider, Family Practice] Stand Alone Forms: Work/School Release IP Time of Disposition: 14:14 Quality NIHSS Nursing Documentation ED NIHSS nursing documentation: reviewed/agree
[2025-01-29 14:01] VITALS: BP 135/75; PULSE 90; RESP 20; TEMP 36.6; O2SAT 99
== END 2025-01-29 14:29 | disposition home or self-care (01) ==
PROVIDERS: Emergency Provider Nurse Practitioner Family; PCP Nurse Practitioner Family
DX: S16.1XXA Strain of muscle, fascia and tendon at neck level, initial encounter (principal); X50.0XXA Overexertion from strenuous movement or load, initial encounter; Y99.0 Civilian activity done for income or pay; M25.511 Pain in right shoulder; F17.210 Nicotine dependence, cigarettes, uncomplicated; F17.290 Nicotine dependence, other tobacco product, uncomplicated; F12.90 Cannabis use, unspecified, uncomplicated; E28.2 Polycystic ovarian syndrome; E66.9 Obesity, unspecified; Z68.42 Body mass index [BMI] 45.0-49.9, adult; F41.9 Anxiety disorder, unspecified; F32.A Depression, unspecified; M47.812 Spondylosis without myelopathy or radiculopathy, cervical region
CPT/HCPCS: 99213; A4565; G0463

== ENCOUNTER 2025-03-07 16:02 | Outpatient (CLI) | payer OTHER, SELFPAY ==
--- OUTSIDE RECORDS SUMMARY | 2025-03-07 20:06 | XMS_ITS | Clinical Summary ---
Author Organization [facility] [facility] [employer] Address [address] [place] [address] Care Team Providers Care Junior Accounting Clerk Name Role Phone Rick Tuttle APRN-FULL FASHIONED GARMENT KNITTER Primary Care Provider Source Comments [facility],non-owned Affiliates and Associated Physician Practices is amultiple site organization consisting of ambulatory clinics and hospital sitesin [place], [place] and [place]. This disclosure is being madepursuant to the Care Everywhere program and may not contain all information available regarding this patient. Last updated 18.[facility] Allergies Active Allergy Reactions Criticality Noted Date [...] VACCINE (1 - 3-dose SCDM series) 2017 DEPRESSION SCREENING 05/17/2024 COVID-19 VACCINE (1 - 2023-2 5 season) 2025 INFLUENZA VACCINE (#1) 2025 ZOSTER VACCINE (1 [...] patient's age to complete this topic Insurance [id number] [place] [address] [facility] Care Teams Junior Accounting Clerk Relationship Specialty Start Date End Date Rick Tuttle, POLICE MATRON-FULL FASHIONED GARMENT KNITTER [address] [place] [address] PCP - General 11/20/21
== END 2025-03-07 16:03 | disposition home or self-care (01) ==
LOC: ANHLAB 16:03
PROVIDERS: PCP Nurse Practitioner Family; Visit Provider Obstetrics & Gynecology
DX: N92.6 Irregular menstruation, unspecified (principal)
CPT/HCPCS: 84144

== ENCOUNTER 2025-03-19 16:14 | Outpatient (CLI) | payer OTHER, SELFPAY ==
[2025-03-19 17:28] LABS: Beta HCG Quantitative < 2.39 mIU/ML
== END 2025-03-19 16:15 | disposition home or self-care (01) ==
LOC: ANHLAB 16:14
PROVIDERS: PCP Nurse Practitioner Family; Visit Provider Obstetrics & Gynecology
DX: N92.6 Irregular menstruation, unspecified (principal)
CPT/HCPCS: 36415; 84702

== ENCOUNTER 2025-04-20 13:37 | Outpatient (CLI) | payer OTHER, SELFPAY ==
[2025-04-20 15:26] LABS: Beta HCG Quantitative < 2.39 mIU/ML
== END 2025-04-20 13:38 | disposition home or self-care (01) ==
LOC: ANHLAB 13:38
PROVIDERS: PCP Nurse Practitioner Family; Visit Provider Obstetrics & Gynecology
DX: N92.6 Irregular menstruation, unspecified (principal)
CPT/HCPCS: 36415; 84702

== ENCOUNTER 2025-04-26 12:31 | Emergency (ER) | payer OTHER, SELFPAY ==
--- NOTE | 2025-04-26 12:33 | ED_ITS ---
HPI - Ear Problem General Chief complaint: Upper Respiratory Infection Stated complaint: Sinus/Ears Irritation Time Seen by Provider: 04/26/25 12:33 Source: patient Mode of arrival: ambulatory Limitations: no limitations History of Present Illness MD Complaint: ear pain Related Data Home Medications ?Medication ?Instructions ?Recorded ?Confirmed ?Last Taken ?Type buspirone 5 mg tablet 5 mg PO BID 12/11/24 5 Unknown History Allergies Allergy/AdvReac Type Severity Reaction Status Date / Time azithromycin Allergy Unknown Rash Verified 04/26/25 12:33 Review of Systems Review of Systems: All systems reviewed & are unremarkable except as noted in HPI and below Constitutional: Constitutional: Denies body ache(s), Denies chills, Denies fever(s), Denies headache(s) and Denies malaise Eyes: Eyes: Denies blurry vision, Denies eye discharge and Denies irritation ENT: Reports otalgia, Denies headache(s), Denies nasal congestion, Denies nasal discharge and Denies sore throat Cardiovascular: Cardiovascular: Denies chest pain, Denies edema, Denies palpitations and Denies dyspnea on exertion Respiratory: Respiratory: Denies cough and Denies dyspnea on exertion Gastrointestinal: Gastrointestinal: Denies abdominal pain, Denies diarrhea, Denies nausea and Denies vomiting Musculoskeletal: Musculoskeletal: Denies back pain, Denies arthralgias and Denies muscle weakness Integumentary/Breasts: Skin/Breast: Denies pruritus and Denies rash Neurologic: Denies headache(s) Psychiatric: Psychiatric: Reports no additional psychiatric complaints Endocrine: Endocrine: Denies palpitations PMFSH Past Medical History Medical History Cough Cervical spondylosis BMI 40.0-44.9, adult Screening for diabetes mellitus Right shoulder pain BMI 37.0-37.9, adult Anemia BMI 38.0-38.9,adult Depression Anxiety Encounter to establish care PCOS (polycystic ovarian syndrome) Obese Tobacco abuse Surgical History Surgical History History of dilation and curettage 11/10/2021 demise at 17 weeks Family History Family History Father Lung cancer Asthma Hypertension Mother Depression Hypertension Grandparent Cancer Grandparent Cancer Other Breast cancer COPD (chronic obstructive pulmonary disease) Diabetes mellitus Family history of arthritis Family history of malignant neoplasm Social History Social History (Updated 02/14/25 @ 16:45 by Mona Guerra [facility]) Years smoked: 15 Smoking status: Current every day smoker Tobacco type: cigarettes and e-cigarettes/vaping Second hand tobacco smoke exposure: Yes Alcohol intake: never Substance use: current Substance use type: marijuana Lack of Transportation: No Lack of Food: Never True Current Housing: I Have Housing Concerned About Future Housing: No Difficulty Paying Gas/Electric Bills: No Difficulty Paying for Meds: No Currently Unemployed: No Education: Associate Degree Difficulty w/ Childcare or Family Care: No Living arrangements: with family Additional living arrangements comments: Occupation/Education: occupation 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 There is no relevant family history pertinent to the presenting complaint? Exam Const: General: cooperative, healthy appearing, no acute distress and well nourished Nutritional Appearance: well nourished Orientation/consciousn ess: patient oriented x3 Limitations: no limitations HENMT: Head: normal to inspection, normocephalic and atraumatic Ears: hearing grossly normal bilaterally, EAC's normal, no periauricular adenopathy and TM abnormal Face/Nose/Sinus: Normal external nose present, Normal nares present, Normal nasal mucous membranes and turbinates present, No nasal discharge present, normal facial exam and sinuses nontender Face and sinus: n ormal facial exam and sinuses nontender Mouth: Yes Normal oral and palatal mucosa present, Yes lip normal, Yes tongue normal and Yes moist mucous membranes Throat: posterior oropharynx normal, tonsils normal and uvula midline Eyes: General: appearance normal, both eyes and all related structures Alignment and Position: alignment normal and position normal Eyelids: eyelids normal Pupils: Equal, round and reactive pupils present EOM: EOMs intact bilaterally Neck: Neck: normal visual inspection, full ROM, no lymphadenopathy and supple Chest: Chest palpation & inspection: normal inspection of the chest Resp: Effort & Inspection: normal respiratory effort and able to speak in complete sentences Auscultation: clear to auscultation bilaterally, no crackles, no rales, no rhonchi and no wheezes Cardio: Rate: regular rate Rhythm: regular rhythm Heart sounds: S1 normal heart sound present and S2 normal heart sound present Skin: General skin exam: normal color and no rashes or lesions noted Neuro: General: patient oriented x3 and moves all extremities Cranial nerves: Yes Equal, round and reactive pupils present Cognition (Neuro): normal cognition Speech: normal speech Gait exam (Neuro): Normal gait present Extrem: General: normal to inspection and full ROM Psych: Appearance: grossly normal and well kempt Mental Status: mental status grossly normal Speech and movement: Normal speech and movement present Course Course Emergency Course: Patient is aware of diagnosis, understands and agrees to treatment plan. Anticipatory guidance given. Patient agrees to follow-up as directed and is aware of reasons to seek care at the emergency department. Portions of this record may have been created with voice recognition software Level of Care: Express Care Visit MDM MDM Narrative Medical decision making narrative: Pt well hydrated appearing, in no respiratory distress, hemodynamically stable. Recommend supportive care. The patient is stable at time of discharge the clinical impression was discussed and the patient was given the opportunity to ask questions, which were addressed as completely as possible given the information available at present. Anticipatory guidance and return to care precautions were discussed and the importance of primary care follow-up was stressed and encouraged. The patient voiced understanding of the plan, indications to return, and the need for follow-up. Exam findings show no acute concerns or changes Patient is appropriate for outpatient treatment and follow-up. Differential Diagnosis Differential Diagnosis: Differential diagnosis considered: otitis media, otitis externa, otitis effusion, foreign body, cerumen impaction, viral syndrome? Medical Records I have reviewed the following patient records and this information was taken into consideration when formulating the assessment and plan.: previous clinic visits Discharge Plan Discharge Patient Language: Lithuanian Prescriptions: No Action buspirone 5 mg tablet 5 mg PO BID Follow-up/Referrals: Francheska Flores APRN [Primary Care Provider, [facility]]
[2025-04-26 12:40] VITALS: BP 131/89; PULSE 70; RESP 18; TEMP 36.7; O2SAT 100
--- NOTE | 2025-04-26 13:00 | ED.URI ---
HPI - URI/Sore Throat General Chief Complaint: Upper Respiratory Infection Stated Complaint: Sinus/Ears Irritation Time Seen by Provider: 04/26/25 12:33 Source: patient Mode of arrival: ambulatory Limitations: no limitations History of Present Illness HPI Narrative: patient is a 35-year-old female who presents with 4 days of sinus congestion, drainage, sinus pressure, sore throat, body aches, fatigue, chills And cough. Denies any fever, nausea, vomiting, diarrhea. has been taking [id number] medication with no relief. History of asthma and bronchitis. 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 Related Data Home Medications ?Medication ?Instructions ?Recorded ?Confirmed ?Last Taken ?Type buspirone 5 mg tablet 5 mg PO BID 12/11/24 02/14/25 Unknown History Allergies Allergy/AdvReac Type Severity Reaction Status Date / Time azithromycin Allergy Unknown Rash Verified 04/26/25 12:33 Review of Systems Review of Systems: All systems reviewed & are unremarkable except as noted in HPI and below Constitutional: Constitutional: Reports chills, Reports fatigue, Denies fever(s), Denies headache(s), Denies malaise and Denies weakness Eyes: Eyes: Denies blurry vision, Denies itchy eyes and Denies loss of vision ENT: Denies otalgia, Denies headache(s), Reports nasal congestion, Denies sinus pain and Reports sore throat Cardiovascular: Cardiovascular: Denies chest pain, Denies irregular heart rhythm and Denies dyspnea Respiratory: Respiratory: Reports cough and Denies dyspnea Gastrointestinal: Gastrointestinal: Denies abdominal pain, Denies diarrhea, Denies nausea and Denies vomiting Musculoskeletal: Musculoskeletal: Denies back pain, Reports myalgias and Denies arthralgias Integumentary/Breasts: Skin/Breast: Denies pruritus and Denies rash Neurologic: Denies headache(s), Denies loss of vision and Denies weakness Psychiatric: Psychiatric: Reports no additional psychiatric complaints Endocrine: Endocrine: Denies fatigue Allergic/Immunologic: Allergic/Immunologic: Denies itchy eyes PMFSH Past Medical History Medical History Cough Cervical spondylosis BMI 40.0-44.9, adult Screening for diabetes mellitus Right shoulder pain BMI 37.0-37.9, adult Anemia BMI 38.0-38.9,adult Depression Anxiety Encounter to establish care PCOS (polycystic ovarian syndrome) Obese Tobacco abuse Surgical History Surgical History History of dilation and curettage 11/10/2021 demise at 17 weeks Family History Family History Father Lung cancer Asthma Hypertension Mother Depression Hypertension Grandparent Cancer Grandparent Cancer Other Breast cancer COPD (chronic obstructive pulmonary disease) Diabetes mellitus Family history of arthritis Family history of malignant neoplasm Social History Social History Years smoked: 15 Smoking status: Current every day smoker Tobacco type: cigarettes and e-cigarettes/vaping Second hand tobacco smoke exposure: Yes Alcohol intake: never Substance use: current Substance use type: marijuana Lack of Transportation: No Lack of Food: Never True Current Housing: I Have Housing Concerned About Future Housing: No Difficulty Paying Gas/Electric Bills: No Difficulty Paying for Meds: No Currently Unemployed: No Education: Associate Degree Difficulty w/ Childcare or Family Care: No Living arrangements: with family Additional living arrangements comments: Occupation/Education: occupation 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 There is no relevant family history pertinent to the presenting complaint. Exam Const: General: cooperative, healthy appearing, comfortable, no acute distress and well nourished Nutritional Appearance: well nourished Orientation/consciousness: patient oriented x3 Limitations: no limitations HENMT: Head: normal to inspection, normocephalic and atraumatic Ears: hearing grossly normal bilaterally, external ears normal, TM's normal bilaterally, EAC's normal and no periauricular adenopathy Face/Nose/Sinus: Normal external nose present, Abnormal mucous membranes and turbinates present erythematous bilateral and diffuse, normal facial exam, sinuses nontender and face symmetric Face and sinus: normal facial exam, sinuses nontender and face symmetric Mouth: Yes Normal oral and palatal mucosa present, Yes lip normal, Yes tongue normal, Yes Normal salivary glands and ducts present, Yes oropharynx normal and Yes moist mucous membranes Teeth and gingiva: dentition normal Throat: posterior oropharynx normal, uvula midline, postnasal drainage and tonsils absent Eyes: General: appearance normal, both eyes and all related structures Alignment and Position: alignment normal and position normal Periorbital: periorbital findings normal Eyelids: eyelids normal Pupils: Equal, round and reactive pupils present Neck: Neck: normal visual inspection, full ROM, no lymphadenopathy and supple Chest: Chest palpation & inspection: normal inspection of the chest and normal palpation of entire chest wall Resp: Effort & Inspection: normal respiratory effort and able to speak in complete sentences Auscultation: no crackles, no rales, no rhonchi and wheezes expiratory wheezes and right upper Cardio: Rate: regular rate Rhythm: regular rhythm Heart sounds: S1 normal heart sound present and S2 normal heart sound present GI: Inspection: normal to inspection Skin: General skin exam: normal color and no rashes or lesions noted Neuro: General: patient oriented x3 and moves all extremities Cranial nerves: Yes Equal, round and reactive pupils present Speech: normal speech Gait exam (Neuro): Normal gait present Extrem: General: normal to inspection, full ROM and no edema Psych: Appearance: grossly normal and well kempt Mental Status: mental status grossly normal Speech and movement: Normal speech and movement present Affect: normal affect Attitude: cooperative Thought process: Normal thought process present Course Course Emergency Course: Patient is aware of diagnosis, understands and agrees to treatment plan. Anticipatory guidance given. Patient agrees to follow-up as directed and is aware of reasons to seek care at the emergency department. Portions of this record may have been created with voice recognition software Level of Care: Express Care Visit Vital Signs Vital signs: Vital Signs Temperature 36.7 C 04/26/25 12:40 Pulse Rate 70 04/26/25 12:40 Respiratory Rate 18 04/26/25 12:40 Blood Pressure 131/89 04/26/25 12:40 Pulse Oximetry 100 04/26/25 12:40 Oxygen Delivery Room Air 04/26/25 12:40 Temperature 36.7 C 04/26/25 12:40 Pulse Rate 70 04/26/25 12:40 Respiratory Rate 18 04/26/25 12:40 Blood Pressure 131/89 04/26/25 12:40 Pulse Oximetry 100 04/26/25 12:40 Oxygen Delivery Room Air 04/26/25 12:40 [facility] Narrative Medical decision making narrative: Rapid COVID, flu were negative. Symptoms likely viral in etiology.Will treat with steroids and cough medicine Pt well hydrated appearing, in no respiratory distress, hemodynamically stable. Recommend supportive care. The patient is stable at time of discharge the clinical impression was discussed and the patient was given the opportunity to ask questions, which were addressed as completely as possible given the information available at present. Anticipatory guidance and return to care precautions were discussed and the importance of primary care follow-up was stressed and encouraged. The patient voiced understanding of the plan, indications to return, and the need for follow-up. Exam findings show no acute concerns or changes Patient is appropriate for outpatient treatment and follow-up. Differential Diagnosis Differential Diagnosis: Differential diagnosis considered: [place] virus, strep pharyngitis, allergic rhinitis, upper respiratory tract infection, sinusitis, rhinosinusitis, nasopharyngitis. viral pharyngitis, otitis media, otitis externa, otitis effusion, foreign body, cerumen impaction, viral syndrome, and influenza. Medical Records I have reviewed the following patient records and this information was taken into consideration when formulating the assessment and plan.: previous clinic visits Lab Data [facility] Lab Attestation statement: I personally reviewed the patient's lab results. Labs: Lab Results 04/26/25 Range/Units 12:40 POC Influenza A Ag Negative (Negative) POC Influenza B Ag Negative (Negative) POC SARS CoV-2 Ag Negative (Negative) Discharge Plan Discharge Clinical Impression: Upper respiratory infection Qualifiers: URI type: unspecified viral URI Qualified Code(s): J06.9 - Acute upper respiratory infection, unspecified Patient Disposition: Home Condition: Stable Instructions: Upper Respiratory Infection (ED) Additional Instructions: Your Covid and flu are both negative Your symptoms are likely due to a viral illness, which is not treated with antibiotics. Viral symptoms can be present for up to a few weeks. -For pain/fever, you may take: Tylenol 650-1000mg by mouth every 4-6 hours. Do not exceed 4000mg in 24 hours. Advil (Ibuprofen) 600 mg by mouth every 6 hours. Do not exceed 2400mg in 24 hours. 8 AM: Tylenol 11 AM: Ibuprofen 2 PM: Tylenol 5 PM: Ibuprofen 8 PM: Tylenol 11 PM: Ibuprofen 2 AM: Tylenol 5 AM: Ibuprofen -Antihistamine medication such as Benadryl/Zyrtec at night and Claritin/Loraine during the day can help improve symptoms. -Use Flonase twice a day for 5 days then daily to help reduce the inflammation and dry up your sinuses. -You can also use Sudafed behind the pharmacy counter(12 or 24 hour). Be sure to drink plenty of water with these medications at least 8 ounces with every dose and it is important to drink 8 to 10 glasses of water per day. Water is a natural decongestant -Eat and drink things that are easy to swallow, like tea or soup, or popsicles. -Oral rinses such as: Salt water gargles and/or may use topical anesthetic (eg. Chloraseptic spray) or lozenges to relieve dryness or throat pain). -Frequent hand washing or hand head of academic technology is one of the best ways to prevent spread of infection. -Using a vaporizer or humidifier at night will also help thin secretions and help with coughing up phlegm. Call your Primary Care Doctor and make a follow-up appointment in 3 days. If your cough worsens, you develop a fever greater than 103, you develop shaking chills, a fast heartbeat, trouble breathing and/or feel you are are breathing much faster than usual, call your Primary Care Doctor or go to the ER. Patient Language: Palestinian Prescriptions: New promethazine-DM 6.25-15 mg/5 mL syrup 5 ml PO Q4-6H PRN (Reason: cough) Qty: 118 0RF prednisone 20 mg tablet 40 mg PO DAILY 5 Days Qty: 10 0RF No Action buspirone 5 mg tablet 5 mg PO BID Follow-up/Referrals: Francheska Flores APRN [Primary Care Provider, Family Practice] - 3 Days Stand Alone Forms: Work/School Release IP Time of Disposition: 13:07
[2025-04-26 13:04] LABS: EDCOVIDSCREEN Negative (Negative); EDINFLUASCREEN Negative (Negative); EDINFLUBSCREEN Negative (Negative)
== END 2025-04-26 13:10 | disposition home or self-care (01) ==
PROVIDERS: Emergency Provider Nurse Practitioner Family; PCP Nurse Practitioner Family
DX: J06.9 Acute upper respiratory infection, unspecified (principal); Z20.822 Contact with and (suspected) exposure to COVID-19; F17.210 Nicotine dependence, cigarettes, uncomplicated; F17.290 Nicotine dependence, other tobacco product, uncomplicated; F12.90 Cannabis use, unspecified, uncomplicated; J45.909 Unspecified asthma, uncomplicated; E28.2 Polycystic ovarian syndrome; E66.9 Obesity, unspecified; Z68.41 Body mass index [BMI] 40.0-44.9, adult; F41.9 Anxiety disorder, unspecified; F32.A Depression, unspecified
CPT/HCPCS: 87426; 87804; 99212; G0463